=== PATIENT | female | born 1935 | race Caucasian/White ===

== ENCOUNTER 2018-08-11 15:12 | Inpatient (IN) ==
[2018-08-11] MEDS ORDERED: ASPIRIN PO ONE (15:32)
--- NOTE | 2018-08-11 16:11 | EKG Report ---
Test Performed on : 08/11/2018 4:06:44 PM Test Reason : sob Blood Pressure : / mmHG Vent. Rate : 092 BPM Atrial Rate : 082 BPM P-R Int : 000 ms QRS Dur : 068 ms QT Int : 354 ms P-R-T Axes : 000 072 063 degrees QTc Int : 437 ms Atrial fibrillation. Septal infarct , age undetermined Abnormal ECG When compared with ECG of 11-AUG-2018 16:05, (Unconfirmed) Septal infarct is now present ST now depressed in Inferior leads Unconfirmed Result
[2018-08-11] MEDS ORDERED: DUONEB (A & A) INH ONE (16:22)
[2018-08-11 16:24] LABS: BASO# 0.02 X1000 (0.0-0.2); BASO% 0.1 % (0.0-0.8); EOS# 0.07 X1000 (0.0-0.7); EOS% 0.5 % (0.0-10.0); HEMOGLOBIN 13.7 g/dL (12.0-16.0); IMM GRAN# 0.04 X1000 (0.0-0.04); IMM GRAN% 0.3 % (0.0-0.5); LYMPH# 2.19 X1000 (1.2-3.4); LYMPH% 16.2 % (20.5-51.1); MCH 28.6 PG (27-31); MCHC 31.1 g/dL (33-37); MCV 91.9 FL (81-99); MONO# 0.72 X1000 (0.11-0.59); MONO% 5.3 % (1.7-9.3); MPV 11.1 FL (7.4-10.4); NEUT# 10.51 X1000 (1.4-6.5); NEUT% 77.6 % (42.2-75.2); PLT 211 X1000 (130-400); RBC 4.79 XMIL (4.2-5.4); WBC 13.55 X1000 (4.8-10.8)
[2018-08-11] MEDS ORDERED: ROCEPHIN 1 GM in NS 50 ML IV ONE (16:25)
[2018-08-11 16:27] LABS: ALLEN TEST YES; BE 3.5 mmoll (-3.0-3.0); BLOOD TYPE ARTERIAL; HCO3-(ACT) 27.6 mmoll (20.0-26.0); METHB 1.3 % (0.0-1.5); O2(CT) 17.8 mL/dL (15.0-23.0); O2HB 96.4 % (95.0-99.0); PCO2(98.6) 44 mmHg (35-45); PO2(98.6) 108 mmHg (60-100); SAMPLE BLOOD; SAO2 98.9 % (95.0-100.0); pH(98.6) 7.42 (7.35-7.45)
[2018-08-11 16:28] LABS: MODALITY CANNULA
[2018-08-11 17:04] LABS: AGAP 12; BUN 17 mg/dL (8-22); CALCIUM 10.1 mg/dL (8.8-10.2); CHLORIDE 107 mmol/L (98-107); COSMO 293; CREATININE 0.8 mg/dL (0.5-0.9); ESTIMATED GFR > 60; GLUCOSE 143 mg/dL (70-104); POTASSIUM 3.8 mmol/L (3.5-5.1); SODIUM 145 mmol/L (136-145); TCO2 26 mmol/L (25-35)
[2018-08-11] MEDS ORDERED: ZOFRAN IV ONE (17:20)
--- NOTE | 2018-08-11 17:29 | Diag Imaging Result Doc PS360 ---
EXAM: CHEST-PORTABLE 08/11/2018 HISTORY: sob TECHNIQUE: AP portable at 1558 COMMENT: There is cardiomegaly. There is extensive increased interstitial markings as well as denser alveolar opacity in the right mid lung field. Compared to 03/30/2017 the interstitial opacities have worsened in the alveolar opacity in the right lateral lung was not present. IMPRESSION: Pulmonary edema and/or pneumonia superimposed on pulmonary fibrosis. Cardiomegaly. Electronically signed by Yg Nunn 08/11/2018 5:27 PM
[2018-08-11] MEDS ORDERED: DUONEB (A & A) INH PRN (18:48)
--- NOTE | 2018-08-11 19:07 | PROVIDER DOCUMENTATION ---
This chart was entered by Selin Phoenix Scribe, acting as scribe for Chay Perdomo MD. HPI-Respiratory General - General Stated Complaint: RESPIRATORY DISTRESS Time Seen by Provider: 08/11/18 15:30 Source: patient, EMS Allergies/Adverse Reactions: Patient Allergies Allergy/AdvReac Type Severity Reaction Status Date / Time Penicillins Allergy Intermediate HIVES Verified 08/11/18 18:27 acetaminophen Allergy NAUSEA Verified 08/11/18 18:27 [From Darvocet-N] cefaclor [From Ceclor] Allergy HIVES Verified 08/11/18 18:27 propoxyphene napsylate * Allergy NAUSEA Verified 08/11/18 18:27 [From Darvocet-N] simvastatin [From Zocor] Allergy Unknown Verified 08/11/18 18:27 Sulfa (Sulfonamide Allergy RASH Verified 08/11/18 18:27 Antibiotics) levofloxacin [From Levaquin] AdvReac Intermediate HIVES Verified 08/11/18 18:27 amoxicillin trihydrate * AdvReac HIVES Verified 08/11/18 18:27 [From Amoxil] Home Medications: Home Medication List Medication Instructions Recorded Confirmed Last Taken Type Budesonide/Formoterol Fumarate 10.2 gm IH DIRECTED 10/27/15 09/25/17 09/25/17 History [Symbicort 160-4.5 Mcg Inhaler] Diltiazem L.a. [Cardizem LA] 180 mg PO DAILY #30 tablet 11/02/15 09/25/17 09/25/17 Rx Carbidopa/Levodopa [Sinemet 25/100] 25 - 100 tab PO 4XDAY 03/26/17 09/25/17 09/25/17 History Escitalopram [Lexapro] 10 mg PO DAILY 03/26/17 09/25/17 09/25/17 History Latanoprost 0.005% Oph Soln 1 drop ORDERED ORDERED 03/26/17 09/25/17 09/25/17 History [Xalatan 0.005% Oph Soln] Pramipexole [Mirapex] 0.5 mg PO DAILY 03/26/17 09/25/17 09/25/17 History Prednisone 10 mg PO DAILY 03/26/17 09/25/17 09/25/17 History Albuterol Sulfate Inhaler 2 puff INH Q6H PRN PRN #1 inhaler 03/31/17 09/25/17 09/25/17 Rx [Ventolin Hfa] Apixaban [Eliquis] 5 mg PO BID #120 tab 03/31/17 09/25/17 09/25/17 Rx Doxycycline 100 mg PO BID #12 tab 03/31/17 09/25/17 09/25/17 Rx Furosemide [Lasix] 20 mg PO Q48H #30 tab 03/31/17 09/25/17 09/25/17 Rx Ipratropium/Albuterol INH 1 puff INH RTQ6H #1 inhaler 03/31/17 09/25/17 09/25/17 Rx [Combivent Respimat Inhaler] Polyethylene Glycol 3350 [Miralax] 17 gm PO DAILY powder, packet 03/31/17 09/25/17 09/25/17 Rx Montelukast Sodium [Singulair] 10 DAILY 09/25/17 Unknown History Pramipexole [Mirapex] 1 PO QHS 09/25/17 1 Day Ago History ~09/24/17 - History of Present Illness-Resp Nature of Presenting Problem: 82 yowf present to the ed via ems with sob this am and has been taking neb tx but with no relief. pt has cough Quality of Pain: reports: none Severity in ED: reports: moderate Onset/Duration: reports: this morning Timing: reports: still present Cough Quality/Degree: reports: mild Current Respiratory Medication Therapy: Initiated see nurses note Modifying Factors: improves with: sitting upright. worse with: exertion Associated Symptoms: reports: cough, shortness of breath. denies: chest pain/soreness, fever/chills Similar Symptoms Previously?: Yes (hx opf copd) Recently seen or treated by another doctor?: No Review of Systems - Adult - REVIEW OF SYSTEMS - ADULT Constitutional: denies: chills, fever Eyes: reports: no symptoms reported Ears, Nose, Mouth & Throat: reports: no symptoms reported Cardiovascular: denies: chest pain, palpitations, syncope Respiratory: reports: see HPI, cough, dyspnea on exertion, shortness of breath, wheezing Gastrointestinal: denies: abdominal pain, diarrhea, nausea, vomiting Genitourinary: reports: no symptoms reported Musculoskeletal: denies: back pain, neck pain Integumentary: reports: no symptoms reported Neurological: reports: no symptoms reported Past History - Adult - PAST MEDICAL HISTORY-ADULT Review of Records: reports: Nursing Assessment Review, Medications Reviewed Major Childhood Illnesses: reports: denies history Cardiovascular: reports: CHF, HTN Respiratory: reports: COPD Gastrointestinal: reports: denies history Obstetrical/Gynecological: reports: denies history Genitourinary: reports: denies history Musculoskeletal: reports: denies history Hand Dominance: Right Handed Neurological: reports: dementia, Parkinson's Psychiatric: reports: denies history Endocrine/Immune: reports: denies history Other Conditions: reports: denies history - PRIOR SURGERIES/PROCEDURES Surgical/Procedure History: reports: cholecystectomy, hysterectomy, hernia repair, bowel surgery - PRIOR HOSPITALIZATIONS Prior Hospitalizations: reports: none - IMMUNIZATION STATUS Childhood Immunizations: UTD Flu Vaccine: See Nurse Assessment - FAMILY HISTORY Family History: reviewed, not pertinent - SOCIAL HISTORY Smoking: quit less than 1 year Substance Use: denies Living Situation: family Physical Exam-General - CONSTITUTIONAL General Appearance: alert, moderate distress - EYES Eyes: PERRL/EOMI, pink conjunctivae - HEAD, EARS, NOSE, MOUTH & THROAT HENMT: normocephalic/atraumatic, moist mucous membranes - NECK Neck: non-tender, full range of motion, supple - RESPIRATORY Respiratory: respiratory distress, decreased breath sounds, wheezing, increased rate (26) - CARDIOVASCULAR Cardiovascular: normal peripheral pulses, regular rate, rhythm, no edema - GASTROINTESTINAL (ABDOMEN) Abdominal Exam: normal bowel sounds, non tender, soft - NEUROLOGIC Neurologic: grossly normal Progress - PLAN OF CARE/RESULTS Progress/Plan/Lab Results: Vital Signs - 8 hr 08/11/18 16:03 08/11/18 16:14 08/11/18 16:30 Temperature 98.1 F Pulse Rate 93 H 86 90 Respiratory Rate 22 21 20 Blood Pressure 139/69 139/69 O2 Sat by Pulse Oximetry 96 99 100 08/11/18 17:30 08/11/18 18:00 08/11/18 18:01 Temperature Pulse Rate 108 H 87 88 Respiratory Rate 17 21 20 Blood Pressure 143/71 O2 Sat by Pulse Oximetry 98 97 98 Laboratory Results - last 24 hr 08/11/18 08/11/18 08/11/18 16:06 16:06 16:06 WBC 13.55 H RBC 4.79 Hgb 13.7 Hct 44.0 MCV 91.9 MCH 28.6 MCHC 31.1 L RDW Std Deviation 15.0 H Plt Count 211 MPV 11.1 H Immature Gran % (Auto) 0.3 Neut % (Auto) 77.6 H Lymph % (Auto) 16.2 L Stone % (Auto) 5.3 Eos % (Auto) 0.5 Baso % (Auto) 0.1 Immature Gran # (Auto) 0.04 Neut # (Auto) 10.51 H Lymph # (Auto) 2.19 Stone # (Auto) 0.72 H Eos # (Auto) 0.07 Baso # (Auto) 0.02 D-Dimer, Quantitative 0.95 H Specimen Type Sample Site pH pCO2 pO2 HCO3 Base Excess Oxyhemoglobin ABG O2 Sat (Calculated) ABG O2 Saturation ABG Carboxyhemoglobin ABG Methemoglobin Brenden Test A-a O2 Difference Total Hemoglobin Lactate Liter Flow Blood Gas Modality FiO2 % Sodium 145 Potassium 3.8 Chloride 107 Carbon Dioxide 26 Anion Gap 12 BUN 17 Creatinine 0.8 Estimated GFR/1.73 m2 > 60 BUN/Creatinine Ratio 21 Glucose 143 H Calculated Osmolality 293 Calcium 10.1 Troponin T Dbl-N-Hqvnehahdqs Pept Plasma Lactate 08/11/18 08/11/18 08/11/18 16:06 16:06 16:15 WBC RBC Hgb Hct MCV MCH MCHC RDW Std Deviation Plt Count MPV Immature Gran % (Auto) Neut % (Auto) Lymph % (Auto) Stone % (Auto) Eos % (Auto) Baso % (Auto) Immature Gran # (Auto) Neut # (Auto) Lymph # (Auto) Stone # (Auto) Eos # (Auto) Baso # (Auto) D-Dimer, Quantitative Specimen Type ARTERIAL Sample Site R RADIAL pH 7.42 pCO2 44 pO2 108 H HCO3 27.6 H Base Excess 3.5 H Oxyhemoglobin 96.4 ABG O2 Sat (Calculated) 17.8 ABG O2 Saturation 98.9 ABG Carboxyhemoglobin 1.30 ABG Methemoglobin 1.3 Brenden Test YES A-a O2 Difference 37.0 Total Hemoglobin 13.0 Lactate 1.70 Liter Flow 2.0 Blood Gas Modality CANNULA FiO2 % 28.0 Sodium Potassium Chloride Carbon Dioxide Anion Gap BUN Creatinine Estimated GFR/1.73 m2 BUN/Creatinine Ratio Glucose Calculated Osmolality Calcium Troponin T < 0.010 Rcp-Y-Vegekdfintd Pept 1758 H Plasma Lactate 08/11/18 16:42 WBC RBC Hgb Hct MCV MCH MCHC RDW Std Deviation Plt Count MPV Immature Gran % (Auto) Neut % (Auto) Lymph % (Auto) Stone % (Auto) Eos % (Auto) Baso % (Auto) Immature Gran # (Auto) Neut # (Auto) Lymph # (Auto) Stone # (Auto) Eos # (Auto) Baso # (Auto) D-Dimer, Quantitative Specimen Type Sample Site pH pCO2 pO2 HCO3 Base Excess Oxyhemoglobin ABG O2 Sat (Calculated) ABG O2 Saturation ABG Carboxyhemoglobin ABG Methemoglobin Brenden Test A-a O2 Difference Total Hemoglobin Lactate Liter Flow Blood Gas Modality FiO2 % Sodium Potassium Chloride Carbon Dioxide Anion Gap BUN Creatinine Estimated GFR/1.73 m2 BUN/Creatinine Ratio Glucose Calculated Osmolality Calcium Troponin T Qig-P-Sjitlgwmfvf Pept Plasma Lactate 2.2 Orders Category Date Time Status Admit - [facility] Routine AdmDCTranf 08/11/18 18:50 Active Activity - Up with Assistance ORDERED Care 08/11/18 18:50 Active Apply Mechanical Device [QM] ORDERED Care 08/11/18 18:50 Active Intake and Output-Strict ORDERED Care 08/11/18 19:03 Active Resuscitation Status Routine Care 08/11/18 18:45 Ordered Update & Confirm Home Medicati ROUTINE Care 08/11/18 19:03 Active Vital Signs Order Q 4-HR ASSESS Care 08/11/18 18:50 Active Z-Document. for Tele Applied ORDERED Care 08/11/18 18:50 Active Heart Healthy Diet Diet 08/11/18 18:51 Active CHEST-PORTABLE [RAD] DAILY Exams 08/13/18 06:00 Ordered CHEST-PORTABLE [RAD] DAILY Exams 08/14/18 06:00 Ordered CHEST-PORTABLE [RAD] DAILY Exams 08/15/18 06:00 Ordered cxr [CHEST-PORTABLE] [RAD] Stat Exams 08/11/18 15:32 Completed ABG [RESP] Routine Lab 08/11/18 16:15 Completed BASIC METABOLIC PANEL [CHEM] DAILY Lab 08/12/18 06:00 Ordered BASIC METABOLIC PANEL [CHEM] DAILY Lab 08/13/18 06:00 Ordered BASIC METABOLIC PANEL [CHEM] Stat Lab 08/11/18 16:06 Completed BLOOD CULTURE [BLDCUL] Stat Lab 08/11/18 17:00 Results CBC WITH DIFF [HEME] DAILY Lab 08/12/18 06:00 Ordered CBC WITH DIFF [HEME] DAILY Lab 08/13/18 06:00 Ordered CBC WITH ELECTRONIC DIFF [HEME] Stat Lab 08/11/18 16:06 Completed CK PROFILE [SP CHEM] Q8H Lab 08/11/18 19:15 Ordered CK PROFILE [SP CHEM] Q8H Lab 08/12/18 03:15 Ordered D-DIMER [COAG] Stat Lab 08/11/18 16:06 Completed HEPATIC FUNCTION [CHEM] Timed Lab 08/11/18 19:01 Ordered LACTATE, PLASMA [CHEM] Stat Lab 08/11/18 16:42 Completed MAGNESIUM [CHEM] DAILY Lab 08/12/18 06:00 Ordered MAGNESIUM [CHEM] DAILY Lab 08/13/18 06:00 Ordered MAGNESIUM [CHEM] DAILY Lab 08/14/18 06:00 Ordered SPUTUM CULTURE WITH GRAM STAIN [RM] Stat Lab 08/11/18 19:05 Uncollected TROPONIN T Q8H Lab 08/11/18 19:15 Ordered TROPONIN T Q8H Lab 08/12/18 03:15 Ordered TROPONIN T Stat Lab 08/11/18 16:06 Completed TSH Timed Lab 08/11/18 19:03 Ordered URINALYSIS W/POSS RFLX CULT [URINALYSIS] Routine Lab 08/11/18 19:03 Uncollected bnp [PRO B-NATRIURETIC PEPTIDE] Stat Lab 08/11/18 16:06 Completed Albuterol 2.5MG/Ipratrop 0.5MG [Duoneb (A & A)] Med 08/11/18 18:48 Active 3 ml INH Q2H PRN PRN Albuterol 2.5MG/Ipratrop 0.5MG [Duoneb (A & A)] Med 08/11/18 19:30 Active 3 ml INH RTQ4H Albuterol 2.5MG/Ipratrop 0.5MG [Duoneb (A & A)] Med 08/11/18 16:22 Disco ntinued 9 ml INH NOW ONE Aspirin Med 08/11/18 15:32 Discontinued 325 mg PO NOW ONE Aspirin Med 08/12/18 09:00 Active 81 mg PO DAILY Azithromycin 500 mg/Ns [Zithromax 500 mg/Ns] Med 08/11/18 19:00 Active 500 mg in 250 ml IV Q24H CefTRIAXONE [Rocephin] 1 gm Med 08/11/18 16:25 Discontinued 0.9% Sodium Chloride Inj [Ns] 50 ml IV NOW CefTRIAXONE [Rocephin] 1 gm Med 08/12/18 17:00 Active 0.9% Sodium Chloride Inj [Ns] 50 ml IV Q24H Methylprednisolone Sod Succ [Solu-Medrol] Med 08/11/18 19:00 Active 60 mg IV Q8H Ondansetron [Zofran] Med 08/11/18 17:20 Discontinued 4 mg IV NOW ONE Aerosol Treatments Routine Oth 08/11/18 18:50 Active Telemetry [OM.EQ] Routine Oth 08/11/18 18:50 Active EKG [EKG] Stat Ther 08/11/18 15:31 Draft Transfer/Admit Order [TRANSFER] Routine Transfer 08/11/18 18:44 Ordered Result Diagrams: 08/11/18 16:06 08/11/18 16:06 - REASSESSMENT Reassessment #1 Time Reassessed: 15:50 Status: unchanged Reassessment #2 Time Reassessed: 16:40 Status: improving - EKG 1 Time of EKG reading by physician:: 16:06 EKG Read and Signed by:: Chay Perdomo EKG Interpretation (*Must complete 3 of following elements*): Abnormal Rate: 92 Rhythm: afib [place]: normal QRS: normal [place] Interval: normal ST Wave: normal Comments: septal infarct, age undetermined - CONSULTS/PCP/HOSPITALIST Notification #1 *Consult/PCP/Hospitalist*: [facility]ajero admitting for Dr. Ness Time Discussed: 18:02 Consult Disposition: Admit (Hx, PE and patient care discussed, aceepted.) Departure - Departure Date of Disposition Decision: 08/11/18 Time of Disposition Decision: 18:02 DIAGNOSIS: Respiratory distress Pneumonia Qualifiers: Pneumonia type: due to unspecified organism Laterality: unspecified laterality Lung location: unspecified part of lung Qualified Code(s): J18.9 - Pneumonia, unspecified organism Pulmonary edema Qualifiers: Chronicity: acute Qualified Code(s): J81.0 - Acute pulmonary edema Disposition: ADMITTED INPATIENT 09 Certified Medical Emergency: Emergent Condition: Stable Referrals and Follow-Ups: Eder Benz MD [Primary Care Provider] - - Critical Care Note This patient required my direct & personal management of CC.: No Attestation - Physician/ CARLOS Attestation Patient care was provided by Advanced Practice Provider:: No The physician spent face to face time with patient:: Yes Advanced Practice Provider documentation review:: Supervising physician onsite and consulted in the evaluation and care of this patient. The physician did have a face to face encounter with the patient. This chart was documented by the indicated scribe, (Selin Phoenix Scribe) and accurately reflects the services I performed and decisions made by me, Chay Perdomo MD, as attested by the provider's signature.
[2018-08-11] MEDS: DUONEB (A & A) INH SCH ×2 (19:23→23:22)
[2018-08-11] MEDS ORDERED: LASIX IV ONE (19:28)
[2018-08-11 19:37] LABS: URINE SOURCE CLEAN CATCH
[2018-08-11 19:40] LABS: BILIRUBIN URINE NEGATIVE (NEGATIVE); BLOOD URINE MODERATE (NEGATIVE); COLOR YELLOW; GLUCOSE URINE NEGATIVE (NEGATIVE); KETONE URINE TRACE mg/dL (NEGATIVE); LEUKOCYTES URINE NEGATIVE (NEGATIVE); NITRITE URINE NEGATIVE (NEGATIVE); PH URINE 5.5; PROTEIN URINE TRACE mg/dL (NEGATIVE); TURBIDITY URINE CLEAR (CLEAR); UROBILINOGEN URINE NORMAL (NORMAL)
[2018-08-11 19:45] LABS: UR EPITHELIAL CELLS >10 /HPF (<10); URINE BACTERIA NEGATIVE /HPF; URINE RBC <10 /HPF (<10); URINE WBC <10 /HPF (<10)
[2018-08-11 19:51] LABS: URINE YEAST PRESENT
[2018-08-11] MEDS: SOLU-MEDROL IV SCH (20:02)
[2018-08-11] MEDS: ZITHROMAX 500 MG/NS 500 MG/250 ML IVPB IV SCH (20:03)
[2018-08-11 20:55] LABS: ALB/GLOB RATIO 1.1; ALBUMIN 3.4 g/dL (3.5-5.0); DIRECT BILIRUBIN 0.1 mg/dL (0.00-0.20); TOTAL BILIRUBIN 0.45 mg/dL (0.20-1.00); TOTAL PROTEIN 6.4 g/dL (6.3-8.3)
--- NOTE | 2018-08-11 22:29 | HISTORY AND PHYSICAL ---
PRIMARY CARE PHYSICIAN: Dr. Eder Benz. CHIEF COMPLAINT: Shortness of breath and hypoxia. HISTORY OF PRESENT ILLNESS: Mrs. Cowart is an 82-year-old female with a history of chronic atrial fibrillation, Parkinson disease, COPD, oxygen dependent, diastolic heart failure, dementia, who presents with acute onset of dyspnea, chills, and subjective fevers that began today. Her daughter, who is at the bedside, states that she was checking her pulse ox today at home and it was varying from the mid 80s to low 90s, at the same time the patient herself was complaining of shortness of breath, coughing up occasional yellow sputum. They did call home health, who eventually called her PCP, who suggested she come to the ER for evaluation. The patient herself is a poor historian. She states that she was short of breath this morning, but feels a little better now. She denies any chest pain. No nausea, vomiting. Denies any abdominal pain, diarrhea, or dysuria. In the ER, she was noted to have a white count of 13.5. Her ABG on nasal cannula was actually fairly adequate, and her chemistry was virtually unremarkable, she did have a proBNP of 1758. Chest x-ray was done and shows pulmonary edema and/or pneumonia superimposed on pulmonary fibrosis with cardiomegaly. EKG does show atrial fibrillation with a rate of 82 beats per minute. Hemodynamically, she is stable, will admit her for community-acquired pneumonia. PAST MEDICAL HISTORY: 1. Chronic atrial fibrillation, not on anticoagulation, presumably secondary to history of falling with head trauma. 2. COPD, on home O2. 3. Parkinson disease. 4. Hypertension. 5. Apparent chronic leukocytosis. 6. Obstructive sleep apnea, not compliant with CPAP. PAST SURGICAL HISTORY: She has had a cholecystectomy, hysterectomy, hernia repair, and a bone fusion. SOCIAL HISTORY: She quit smoking in her 40s. No tobacco, alcohol, or drug use. She lives with her daughter and has home health. She is . ALLERGIES: Penicillin, acetaminophen, cefaclor, propoxyphene, Zocor, sulfa, Levaquin, amoxicillin. HOME MEDICATIONS: Have not been compiled, once they are compiled we will assign them appropriately. REVIEW OF SYSTEMS: A 10-point review of systems obtained, found to be negative with the exception of the HPI. FAMILY HISTORY: Noncontributory. PHYSICAL EXAM: VITAL SIGNS: Blood pressure is 143/71, heart rate 88, respiratory rate 20, O2 saturation 98% on nasal cannula, temperature is 98.1 degrees. GENERAL: Elderly and frail-appearing 82-year-old female, lying in a hospital bed, no acute distress. NEUROLOGIC: She is awake and alert. She is somewhat disoriented, stating that she is at [facility]. Otherwise, follows commands without focal deficits. HEENT: Head atraumatic, normocephalic. Pupils are equal, round, reactive to light. Oral mucosa is slightly dry. Trachea is midline. There is no JVD. CHEST: Diminished with very fine Velcro-like crackles in the bases. CARDIOVASCULAR: Irregular rate and rhythm, S1, S2 is noted. GASTROINTESTINAL: Soft, nondistended, nontender. Bowel sounds positive. EXTREMITIES: No edema. Pulses 1+ bilaterally. DIAGNOSTIC DATA: Chest x-ray shows pulmonary edema and/or pneumonia superimposed on pulmonary fibrosis with cardiomegaly. EKG, atrial fibrillation, rate controlled at 82 beats per minute. WBC 13.55, hemoglobin 13.7, hematocrit 44, platelet count 211,000. D-dimer 0.95. ABG on nasal cannula, pH 7.42, CO2 is 44, pO2 is 108, bicarb 27.6. Lactate 1.7. Sodium 145, potassium 3.8, chloride 107, CO2 of 26, anion gap 12, BUN 17, creatinine 0.8. Glucose 143, calcium 10.1. Troponin negative. ProBNP 1758. Plasma lactate is 2.2. ASSESSMENT AND PLAN: 1. Acute hypoxemic respiratory failure: Presumably secondary to pulmonary fibrosis, chronic obstructive pulmonary disease, and pneumonia with possible diastolic heart failure. We will add azithromycin to the Rocephin that has been started. Continue breathing treatments. Add low-dose IV steroids and aggressive pulmonary toilet. We will check a chest x-ray in the morning. The blood cultures have been obtained. We will order sputum cultures as well. 2. Community-acquired pneumonia, as above. 3. Diastolic heart failure: Patient does not appear overtly volume overloaded, in fact, she is probably a bit on the dry side. Will hold off on any diuresis as, again, she is not volume overloaded. Continue breathing treatments. Trend cardiac enzymes. Follow intakes and outputs, daily weights, will follow telemetry as well. 4. Parkinson disease. Will continue home medications once reconciled. 5. Chronic atrial fibrillation: Rate controlled. We will check a TSH. Continue home rate control medication and hold off on anticoagulation, as that has been stopped in the past due to dementia and fall risk. Further recommendations to follow. cc: Pedro Mccann MD
[2018-08-11] MEDS: SINEMET 25/100 PO SCH (23:28)
[2018-08-11] MEDS: MIRAPEX PO SCH (23:28)
[2018-08-12] MEDS: DUONEB (A & A) INH SCH ×6 (03:14→23:25)
[2018-08-12] MEDS: SOLU-MEDROL IV SCH ×2 (04:25→16:47)
[2018-08-12] MEDS: CARDIZEM LA PO SCH (04:26)
[2018-08-12] MEDS ORDERED: LANOXIN IV ONE (05:03)
[2018-08-12] MEDS ORDERED: LANOXIN ONE (05:21)
[2018-08-12 06:00] LABS: HEMATOCRIT 43.5 % (37.0-47.0); HEMOGLOBIN 13.3 g/dL (12.0-16.0); IMM GRAN# 0.03 X1000 (0.0-0.04); IMM GRAN% 0.2 % (0.0-0.5); LYMPH# 0.51 X1000 (1.2-3.4); LYMPH% 4.2 % (20.5-51.1); MCH 28.4 PG (27-31); MCHC 30.6 g/dL (33-37); MCV 92.9 FL (81-99); MONO# 0.09 X1000 (0.11-0.59); MONO% 0.7 % (1.7-9.3); MPV 11.4 FL (7.4-10.4); NEUT# 11.44 X1000 (1.4-6.5); NEUT% 94.9 % (42.2-75.2); PLT 198 X1000 (130-400); RBC 4.68 XMIL (4.2-5.4); RDW 15.1 % (11.5-14.5); WBC 12.07 X1000 (4.8-10.8)
[2018-08-12 06:25] LABS: CALCIUM 9.8 mg/dL (8.8-10.2); CREATININE 1.1 mg/dL (0.5-0.9); MAGNESIUM 1.9 mg/dL (1.5-2.7); POTASSIUM 3.7 mmol/L (3.5-5.1)
[2018-08-12 06:52] LABS: SEGS 100 % (42-75)
--- NOTE | 2018-08-12 08:18 | EKG Report ---
Test Performed on : 08/12/2018 05:07:04 AM Test Reason : tachy Blood Pressure : / mmHG Vent. Rate : 139 BPM Atrial Rate : 122 BPM P-R Int : 000 ms QRS Dur : 072 ms QT Int : 318 ms P-R-T Axes : 000 046 -64 degrees QTc Int : 483 ms Atrial fibrillation. with rapid ventricular response. ST & T wave abnormality, consider inferior ischemia Abnormal ECG When compared with ECG of 11-AUG-2018 16:06, (Unconfirmed) Vent. rate has increased BY 47 BPM Criteria for Septal infarct are no longer present T wave inversion now evident in Inferior leads Nonspecific T wave abnormality now evident in Anterior leads Confirmed by Ronny ALVES, Akhil Kerns ([id number]) on 08/12/2018 10:22:49 AM
[2018-08-12] MEDS ORDERED: LOPRESSOR IV ONE (08:56)
[2018-08-12] MEDS ORDERED: SINEMET 25/100 PO SCH (09:00)
[2018-08-12] MEDS ORDERED: CARDIZEM LA PO SCH (09:00)
[2018-08-12] MEDS: SINEMET 25/100 PO SCH ×4 (09:06→20:24)
[2018-08-12] MEDS: LEXAPRO PO SCH (09:06)
[2018-08-12] MEDS: ASPIRIN PO SCH (09:06)
--- NOTE | 2018-08-12 10:21 | PROGRESS NOTE ---
DATE: 08/12/2018 SUBJECTIVE: This patient is resting comfortably in bed. She feels better, I had a conversation with the daughter which is at the bedside. It looks like every time this patient eats, she probably has a little aspiration to the lungs, sometimes she is choking and she feels short of breath after eating as well. I have requested an evaluation by Speech Therapy. As per the daughter, also this patient had an esophageal dilation a long time ago. OBJECTIVE: Vital Signs: Temperature 97.8 degrees, pulse 120 but now at the bedside is 95, blood pressure 114/48, oxygen saturation 97% on 2 L of nasal cannula. HEENT: Head normocephalic. No trauma. PERRLA. Neck: Supple. No JVD. No masses. Central trachea. Chest: Decreased breath sounds globally with expiratory wheezing but scattered, some crackles bilaterally as well. Some crepitus which are generalized. Abdomen: Soft, nontender, nondistended. No hepatosplenomegaly. Neurological: The patient is alert, she is oriented. No focal deficits. Extremities: No edema, no clubbing, no cyanosis. LABORATORY DATA: WBC 12, hemoglobin 13.3, hematocrit 43.5, platelets 198,000. Sodium 146, potassium 3.7, chloride 104, bicarbonate 22, BUN 18, creatinine 1.1, glucose 172, calcium 9.8. Troponins negative x4. ASSESSMENT AND PLAN: 1. Acute hypoxemic respiratory failure, likely secondary to chronic obstructive pulmonary disease exacerbation, pneumonia and pulmonary fibrosis. She is on home O2 at this moment. We will continue with the same management. She is on antibiotics, breathing treatment and oxygen. 2. Community-acquired pneumonia, as above. 3. Chronic obstructive pulmonary disease with mild exacerbation as above. We will decrease the dose of the steroids from 60 q.8 hours to 40 q.12 hours, and we will monitor. She feels better. 4. Atrial fibrillation with episodes of rapid ventricular response, at this moment is controlled. She received digoxin IV during the night and recently she received a low dose of metoprolol 2.5 IV and the heart rate seems to be much better, is mostly in the 80s and 90s on the monitor. 5. Possible aspiration pneumonia. I have requested an evaluation by Speech Therapy, pending recommendations. 6. Pneumonia, as above. 7. Diastolic heart failure. She received just a little dose of Lasix yesterday because she has been having crackles. She feels better today. Her kidney function increased a little bit but seems to be at baseline. 8. Likely chronic kidney disease. We will monitor. 9. Parkinson disease. Continue with home medications. 10. Chronic atrial fibrillation. At this moment, the rate is controlled. The TSH is normal. We have been using metoprolol as needed and she will continue with diltiazem p.o. She is not on any anticoagulation due to possible dementia and fall risk. 11. Dementia, aware. cc: Pedro Mccann MD
[2018-08-12] MEDS: MIRALAX PO SCH (13:39)
[2018-08-12] MEDS: ROCEPHIN 1 GM in NS 50 ML IV SCH (16:47)
[2018-08-12] MEDS: ZITHROMAX 500 MG/NS 500 MG/250 ML IVPB IV SCH (18:53)
[2018-08-12] MEDS: LOPRESSOR IV PRN (20:24)
[2018-08-12] MEDS: MIRAPEX PO SCH (20:24)
[2018-08-12] MEDS ORDERED: MIRAPEX PO SCH (21:00)
[2018-08-13] MEDS: TYLENOL PO PRN ×3 (02:34→14:48)
[2018-08-13] MEDS: DUONEB (A & A) INH SCH ×6 (03:25→23:10)
[2018-08-13] MEDS: CARDIZEM LA PO SCH (04:20)
[2018-08-13] MEDS: SOLU-MEDROL IV SCH (04:20)
--- NOTE | 2018-08-13 07:37 | Diag Imaging Result Doc PS360 ---
EXAM: CHEST-PORTABLE INDICATION: Dyspnea TECHNIQUE: One view COMPARISON: 08/11/2018 FINDINGS: Increased interstitial markings bilaterally are essentially stable. However, there has been improvement of the airspace opacity in the right midlung zone. No new consolidation is identified. Cardiac silhouette is stable. IMPRESSION: Interval improvement on the right. Electronically signed by Geoffrey Casper 08/13/2018 7:35 AM
[2018-08-13 08:07] LABS: CALCIUM 9.2 mg/dL (8.8-10.2); MAGNESIUM 2.1 mg/dL (1.5-2.7); POTASSIUM 4.1 mmol/L (3.5-5.1)
[2018-08-13 08:10] LABS: BASO# 0.01 X1000 (0.0-0.2); HEMATOCRIT 40.4 % (37.0-47.0); HEMOGLOBIN 12.3 g/dL (12.0-16.0); IMM GRAN# 0.07 X1000 (0.0-0.04); IMM GRAN% 0.3 % (0.0-0.5); LYMPH# 0.48 X1000 (1.2-3.4); LYMPH% 2.2 % (20.5-51.1); MCH 28.3 PG (27-31); MCHC 30.4 g/dL (33-37); MCV 93.1 FL (81-99); MONO# 0.58 X1000 (0.11-0.59); MONO% 2.6 % (1.7-9.3); MPV 11.7 FL (7.4-10.4); NEUT# 21.04 X1000 (1.4-6.5); NEUT% 94.9 % (42.2-75.2); PLT 198 X1000 (130-400); RBC 4.34 XMIL (4.2-5.4); RDW 15.2 % (11.5-14.5); WBC 22.18 X1000 (4.8-10.8)
[2018-08-13] MEDS: MIRALAX PO SCH (08:45)
[2018-08-13] MEDS: SINEMET 25/100 PO SCH ×4 (08:45→21:28)
[2018-08-13] MEDS: ASPIRIN PO SCH (08:45)
[2018-08-13] MEDS: LEXAPRO PO SCH (08:45)
[2018-08-13 09:25] LABS: ANISOCYTOSIS 1+; BANDS 1 % (0-1); LYMPHS 3 % (21-51); MICROCYTOSIS 1+; MONO 3 % (1-9); SEGS 93 % (42-75)
--- NOTE | 2018-08-13 11:32 | Diag Imaging Result Doc PS360 ---
EXAM: BA SWALLOW W/VIDEO SPEECH THER HISTORY: Dysphagia TECHNIQUE: Modified barium swallow with speech therapist COMPARISON: None. FINDINGS: 113 images obtained. Fluoroscopy time is 29 seconds. Total dose is 40 mg. Normal passage of barium through the esophagus. Mildly prominent cricopharyngeus muscle. No aspiration occurred during the exam. The mid and distal esophagus are dilated. No stricture. IMPRESSION: Distended esophagus, but no obstruction to flow. Electronically signed by Sanjay Casey 08/13/2018 11:30 AM
--- NOTE | 2018-08-13 13:36 | PROGRESS NOTE ---
DATE: 08/13/2018 SUBJECTIVE: This patient is resting in bed. She has been choking with food frequently, but we just did a modified barium swallow that showed distended esophagus, but no obstruction of flow, and no aspiration during the exam. She does have pulmonary venous congestion and pneumonia, Infectious Disease Department and Pulmonary Department consulted. For now, we will continue with same management. OBJECTIVE: Vital Signs: Temperature 98 degrees, respiratory rate 16, and blood pressure 110/58. Oxygen saturation 94% on 2 L of nasal cannula. HEENT: Head normocephalic. No trauma. PERRLA. Neck: Supple. No JVD. No masses. Central trachea. Chest: Decreased breath sounds globally with scattered wheezing bilaterally. Some crackles bilaterally as well as crepitus which are generalized. Abdomen: Soft, nontender, and nondistended. No hepatosplenomegaly. Neurological: The patient is alert. She is oriented. No focal neurological deficits. LABORATORY: WBC 22.1, hemoglobin 12.3, hematocrit 40.4, and platelets 198,000. Sodium 144, potassium 4.1, chloride 104, bicarbonate 28, BUN 27, creatinine 1, glucose 139, calcium 9.2, and magnesium 2.1. ASSESSMENT AND PLAN: 1. Acute hypoxemic respiratory failure likely secondary to COPD exacerbation, pneumonia and pulmonary fibrosis. She is on home O2 at this moment. We will continue with same management. She is on antibiotics and breathing treatment. 2. Community-acquired pneumonia as above. 3. Chronic obstructive pulmonary disease exacerbation. I will decrease the steroids from 40 twice a day to 40 daily, and we will monitor. I do believe the leukocyte count increased due to the steroids. 4. Atrial fibrillation with episodes of RVR, controlled. 5. Possible aspiration pneumonia, modified barium swallow did not show any aspiration. She does have some dilated esophagus I think in a couple of areas, but no signs of obstruction. 6. Diastolic heart failure. She received just a little bit of Lasix 2 days ago because she was having a lot of crackles. She feels better. Kidney function at baseline. 7. Likely CKD. We will monitor. 8. Parkinson's disease. Continue home medication. 9. Chronic atrial fibrillation, rate controlled. TSH is normal. Continue metoprolol as needed and diltiazem p.o. 10. Dementia. Aware. 11. Even though she was coughing and basically choking with fluid during my physical exam, she had a modified barium swallow that did not show any obstruction and/or aspiration. We will continue to monitor. We will get GERD precautions and aspiration precautions. I have placed this patient on pantoprazole p.o. twice a day as well. cc: Pedro Mccann MD
--- NOTE | 2018-08-13 14:44 | CONSULTATION ---
DATE OF CONSULTATION: 08/13/2018 CONCLUSION: The patient is admitted to the hospital with pneumonia. Her latest chest x-ray shows that her right mid lung opacity is getting better. Both the patient and her daughter, who takes care of the patient, feel that she is getting better. The patient does have leukocytosis but I think this is due to the steroids that she has been put on, namely Solu-Medrol 40 mg IV every 12 hours. RECOMMENDATIONS: I suggest that we should continue with azithromycin and Rocephin. When the patient gets better and can go home I would suggest that we continue azithromycin p.o. and instead of Rocephin I would suggest treating the patient with Ceftin 500 mg p.o. every 12 hours. DISCUSSION: The patient is unable provide a history and the history I obtained was from the patient's daughter, who lives with her. She tells me that her mom approximately 4 to 5 days ago became dyspneic. She also noticed that her heart rate was increased. She was not having any nausea or vomiting and she did not have any diarrhea. She did not complain of any problem passing urine either. Laboratory studies show a CBC with a white count of 22,180, hemoglobin 12.3, and platelet count 198,000. Creatinine is 1. GFR is 53. Blood gases show a pH of 7.42, a PO2 of 108, and a pCO2 of 44. Liver function studies are normal. Urinalysis showed no bacteria or white blood cells. Blood cultures are negative. Chest x-ray shows improvement in the patient's right mid lung opacity. REVIEW OF SYSTEMS: I was unable to do this by asking the patient. The information I did get was from the patient's daughter. The daughter says that the patient has decreased hearing and vision, that she cannot walk on her own and she needs assistance to get from 1 place to another and specifically the daughter almost has to carry her that way. She for the most part is either chair ridden or bed ridden. She has not been having any nausea, vomiting, or diarrhea. She has not been having any skin rashes. The patient has not been complaining of any pain in her joints or muscle aching according to the daughter. [employer] HISTORY: Patient is a 8, para 6, AB 2. She has had a hysterectomy. PREVIOUS HOSPITALIZATIONS AND OPERATIONS: She has had labor and deliveries, two miscarriages, a hysterectomy, a hernia repair. The patient had part of her colon removed, the exact reason why is not known. She has had 2 surgeries on her cervical spine. MEDICAL DISEASES: Positive for hypertension, atrial fibrillation, Parkinson's disease, and COPD. 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 FAMILY HISTORY: Positive for hypertension, myocardial infarction, stroke, and cancer. SOCIAL HISTORY: The [place] . [place] The patient does not smoke cigarettes, drink alcoholic beverages, or abuse drugs. ALLERGIES: The patient is said to be allergic to penicillin. This occurred approximately 50 years ago. The daughter told me and I think she is absolutely correct in it, that the patient really is not allergic to most of the medications, she just has some adverse reactions to them such as diarrhea or nausea. The patient for instance now is on Rocephin and tolerating it very well even though cefaclor is listed as an allergy. The patient in the past has had Keflex and tolerated it well. MEDICATIONS: Medicines taken at home include the following. Ventolin inhaler, Sinemet, diltiazem, Lexapro, nitrofurantoin, Mirapex, and prednisone. PHYSICAL EXAMINATION: Vital Signs: Temperature is 97.9 degrees, pulse 105, respirations 16, blood pressure 126/57. General: This is an ill-appearing, elderly female. She is in no acute distress. Head, eyes, ears, nose, throat: She has decreased hearing and according to her daughter she has decreased vision. She does not have any white patches on her tongue. There is no drainage from the nose or ears. Neck: There is no meningismus. Lungs: Clear to auscultation. Cardiovascular: Heart rate is irregular. Abdomen: Soft and nontender. Extremities: No erythema or edema. Neurologic: The patient is awake. She has decreased hearing. She can move her extremities. There is no tremor. Integument: No rash is noted. Thank you for the consult. cc: Kennedy Putnam MD
[2018-08-13] MEDS: ROCEPHIN 1 GM in NS 50 ML IV SCH (17:44)
[2018-08-13] MEDS: ZITHROMAX 500 MG/NS 500 MG/250 ML IVPB IV SCH (18:46)
[2018-08-13] MEDS: MIRAPEX PO SCH (21:28)
[2018-08-13] MEDS: PROTONIX PO SCH (21:29)
--- NOTE | 2018-08-13 23:33 | CONSULTATION ---
DATE OF CONSULTATION: 08/13/2018 REQUESTING PROVIDER: Dr. Pedro Ness. REASON FOR CONSULTATION: Respiratory failure, pneumonia, COPD. HISTORY OF PRESENT ILLNESS: This is an 82-year-old female with a medical history of chronic hypoxic respiratory failure secondary to COPD, pulmonary fibrosis, obstructive sleep apnea, atrial fibrillation, Parkinson disease, histoplasmosis, hypertension, diabetes mellitus type 2, vascular dementia, and chronic leukocytosis. She had been seen in our office from May 2013 to September 2015 with severe COPD. Her last PFT in our records was done on 10/18/2015 with FEV1 at 48% of predicted. She presented to the ER on 08/11/2018 via EMS with acutely worsening shortness of breath, desaturation on home oxygen at 2 L, and tachycardia. Initial workup in the ER revealed acute on chronic hypoxic respiratory failure secondary to mild COPD exacerbation, pneumonia, and pulmonary fibrosis. She has been admitted to the medical floor for further evaluation and management. The patient is currently sitting in bed comfortably with no acute distress noted. She is on nasal cannula at 2 L, which is close to her baseline oxygen requirement. She apparently has decreased hearing and vision. She does complain of back pain at the end of my assessment and she remembers that she already took Tylenol for it, but the nurse told me that she took Tylenol for headache, not back pain. The patient's daughter who currently lives with her and takes care of her, reports that the patient has chronic intermittent productive cough with very sticky, clear phlegm most of time. She has intermittent worsened shortness of breath with hypoxia and tachycardia which looks like a panic attack for about a week. She has no fever, chills, nausea, vomiting, diarrhea, or chest pain. PAST MEDICAL AND SURGICAL HISTORY: 1. Chronic hypoxic respiratory failure secondary to COPD and pulmonary fibrosis, on home oxygen. 2. COPD, severe, based on the PFT done in September 2015, currently monitored by patient's family doctor per patient's daughter. 3. Pulmonary fibrosis. 4. Obstructive sleep apnea, not complying with CPAP therapy, not agreeing to outpatient sleep study test. 5. Atrial fibrillation. 6. Parkinson disease. 7. Remote history of histoplasmosis. 8. Hypertension. 9. Diabetes mellitus type 2. 10. Vascular dementia. 11. 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 The patient and patient's family do not remember why the patient takes steroid. 12. Cholecystectomy. 13. Hysterectomy. 14. Hernia repair. 15. Partial colon resection. 16. Bone fusion. SOCIAL HISTORY: The patient lives with her daughter and has home health care. She is . She is a former smoker and quit smoking in her 40s. She has no history of alcohol or illicit drug use. FAMILY HISTORY: Positive for heart attack, stroke, and cancer. ALLERGIES: Penicillins, Ceclor, sulfa, Levaquin, amoxicillin, Darvocet, Zocor. REVIEW OF SYSTEMS: Difficult to be obtained. PHYSICAL EXAMINATION: Vital Signs: Temperature 97.9, blood pressure 126/57, pulse 105, respiratory rate 16, oxygen saturation 100% on nasal cannula at 2. General: Elderly, chronically ill appearing, lying in bed in no acute distress. HEENT: Atraumatic. Trachea midline. Mucosa pink and slightly dry. No JVD. Respiratory: Even and unlabored. Symmetrical excursion. Auscultation reveals diminished breathing sounds with early inspiratory crackles bibasilarly and severely coarse breathing sounds in the upper lung zones bilaterally. Cardiovascular: Irregular rate and rhythm, with S1 and S2 noted. Gastrointestinal: Bowel sounds normoactive in all 4 quadrants. Soft, nontender, nondistended. Extremities: Resting tremor in the right arm noted. No pedal edema. No clubbing. No cyanosis. Neurologic: Alert and oriented x2. Speech fluent. Follow simple commands. Decreased hearing and vision reported and noted. LABORATORY DATA: White blood cell 22.18, hemoglobin 12.3, hematocrit 40.4, platelets 198,000. Sodium 144, potassium 4.1, chloride 104, carbon dioxide 28, BUN 27, creatinine 1.0, and glucose 139. IMAGING DATA: Chest x-ray reveals stable increased bilateral interstitial markings with interval improvement in the right middle lung zone. ASSESSMENT: This is an 82-year-old female with a medical history of chronic hypoxic respiratory failure secondary to chronic obstructive pulmonary disease and pulmonary fibrosis, obstructive sleep apnea, atrial fibrillation, Parkinson disease, remote history of histoplasmosis, hypertension, diabetes mellitus type 2, vascular dementia, and chronic leukocytosis. She has been admitted to the medical floor with acute on chronic hypoxic respiratory failure secondary to mild chronic obstructive pulmonary disease exacerbation, pneumonia, and pulmonary fibrosis. 1. Acute on chronic hypoxic respiratory failure, improved. Currently on nasal cannula at 2 L. 2. Severe chronic obstructive pulmonary disease mild exacerbation, improved. Currently, no wheezing noted. 3. Pneumonia. Dr. Putnam is on board. 4. Pulmonary fibrosis. 5. Obstructive sleep apnea. PLAN: 1. Continue supplemental oxygen. 2. Continue antibiotic per Dr. Putnam. Continue steroids and bronchodilators. 3. Follow up with chest x-ray, CBC, BMP, sputum culture, and blood culture. 4. Recommend discharging patient on long-acting anticholinergic such as Spiriva, along with long- acting beta agonist/inhaled corticosteroid combination such as Advair, Symbicort, Dulera. 5. Recommend to follow up outpatient with [facility]. 6. Continue GI and DVT prophylaxis. 7. Further recommendation pending hospital course. Thank you for the courtesy of this consult. Dictated by ROB Sidhu for Viji Smith MD cc: ROB Sidhu MD [facility]
[2018-08-14] MEDS: DUONEB (A & A) INH SCH ×6 (03:15→22:47)
[2018-08-14] MEDS: CARDIZEM LA PO SCH (04:53)
--- NOTE | 2018-08-14 07:15 | Diag Imaging Result Doc PS360 ---
EXAM: CHEST-PORTABLE 08/14/2018 HISTORY: Dyspnea TECHNIQUE: AP portable at 0603 COMMENT: There are patchy ill-defined opacities particularly in the right perihilar region which appears slightly worse than on 08/13/2018. This is similar in appearance, however, to the previous study of 08/11/2018. IMPRESSION: Pulmonary edema and/or pneumonia. Electronically signed by Yg Nunn 08/14/2018 7:13 AM
[2018-08-14 08:19] LABS: BASO# 0.01 X1000 (0.0-0.2); HEMATOCRIT 43.1 % (37.0-47.0); HEMOGLOBIN 13.4 g/dL (12.0-16.0); IMM GRAN# 0.06 X1000 (0.0-0.04); IMM GRAN% 0.3 % (0.0-0.5); LYMPH# 1.09 X1000 (1.2-3.4); LYMPH% 5.2 % (20.5-51.1); MCH 28.8 PG (27-31); MCHC 31.1 g/dL (33-37); MCV 92.5 FL (81-99); MONO# 1.56 X1000 (0.11-0.59); MONO% 7.5 % (1.7-9.3); MPV 11.1 FL (7.4-10.4); NEUT# 18.08 X1000 (1.4-6.5); PLT 201 X1000 (130-400); RBC 4.66 XMIL (4.2-5.4); RDW 15.2 % (11.5-14.5)
[2018-08-14] MEDS: LEXAPRO PO SCH (08:35)
[2018-08-14] MEDS: MIRALAX PO SCH (08:35)
[2018-08-14] MEDS: SINEMET 25/100 PO SCH ×4 (08:35→22:47)
[2018-08-14] MEDS: ASPIRIN PO SCH (08:35)
[2018-08-14] MEDS: PROTONIX PO SCH ×2 (08:35→22:47)
[2018-08-14 08:37] LABS: CALCIUM 9.5 mg/dL (8.8-10.2); CREATININE 0.9 mg/dL (0.5-0.9); POTASSIUM 4.5 mmol/L (3.5-5.1)
[2018-08-14] MEDS ORDERED: SOLU-MEDROL IV SCH (09:00)
[2018-08-14 09:14] LABS: LYMPHS 5 % (21-51); MONO 6 % (1-9); SEGS 89 % (42-75)
[2018-08-14 09:15] LABS: POIKILOCYTOSIS 1+; TARGET CELLS 1+
--- NOTE | 2018-08-14 16:42 | PROGRESS NOTE ---
DATE: 08/14/2018 SUBJECTIVE: This patient is sitting at the bedside during my physical exam. The modified swallow barium swallow showed a distended esophagus but no obstruction of flow, and no aspiration during the exam, even though she was choking yesterday when I saw her. She does have pulmonary venous congestion, pneumonia and fibrosis. Infectious Disease Department and Pulmonary Department on board. She is still short of breath. She seems to be frail. Likely we need to keep this patient during the weekend and discharge her at the beginning of the next week. OBJECTIVE: Vital Signs: Temperature 98.4 degrees, pulse 92, respiratory rate 18, blood pressure 114/55, oxygen saturation 100% on 2 L of nasal cannula. HEENT: Head normocephalic. No trauma. PERRLA. Neck: Supple. No JVD. No masses. Central trachea. Chest: Decreased breath sounds globally with no wheezing today, but crackles bilaterally and crepitus, which are generalized. Abdomen: Soft, nontender, nondistended. No hepatosplenomegaly. Neurological: Alert and oriented x3. She does have generalized weakness. LABORATORY DATA: WBC 20, hemoglobin 13.4, hematocrit 43.1, platelets 201,000. Sodium 142, potassium 4.5, chloride 106, bicarbonate 29, BUN 27, creatinine 0.9, glucose 105, calcium 9.5, magnesium 2.3. ASSESSMENT AND PLAN: 1. Acute hypoxemic respiratory failure, likely secondary to chronic obstructive pulmonary disease exacerbation, pneumonia and pulmonary fibrosis, she is on home O2. We will continue with same management. Pulmonary Department evaluated this patient. Continue with antibiotics and breathing treatment. 2. Acute community-acquired pneumonia. As above. 3. Chronic obstructive pulmonary disease exacerbation. I will stop the IV steroids, and I will start giving her p.o. steroids since she is not wheezing today. 4. Atrial fibrillation with rapid ventricular response, controlled. 5. Diastolic heart failure. She received a little bit of Lasix 3 days ago, but she was having a lot of crackles. She is still having some crackles. She feels better and her kidney function is at baseline. 6. Likely chronic kidney disease. Will monitor. 7. Parkinson's disease. Continue home medication. 8. Chronic atrial fibrillation, rate controlled. TSH normal. Continue metoprolol as needed. 9. Dementia, aware. 10. Leukocytosis, likely a combination of steroids and pneumonia. Will continue with the same management. I will decrease the dose of the steroids and actually I will switch it from IV to p.o. cc: Pedro Mccann MD
[2018-08-14] MEDS: ROCEPHIN 1 GM in NS 50 ML IV SCH (17:13)
[2018-08-14] MEDS: ZITHROMAX 500 MG/NS 500 MG/250 ML IVPB IV SCH (18:02)
[2018-08-14] MEDS: TYLENOL PO PRN (18:56)
[2018-08-14] MEDS: MIRAPEX PO SCH (22:47)
--- NOTE | 2018-08-14 23:00 | INFECTIOUS DISEASE PROGRESS NO ---
DATE: 08/14/2018 PRESENT ILLNESS: The patient has a right perihilar pneumonia. MEDICATIONS: The patient is receiving a combination of Rocephin and azithromycin. This is the third day of treatment with those agents. PHYSICAL EXAMINATION: Vital Signs: Temperature is 98.5 degrees, pulse 98, respirations 20, blood pressure 138/74. General: This is a chronically ill-appearing elderly female. She does look a little bit better than she did yesterday. Head/eyes/ears/nose/throat: She has decreased hearing. She does not have any white patches on her tongue. There is no drainage from the nose or ears. Neck: She does not have any pain when she turns her neck. Lungs: There were bilateral rales. Cardiovascular: Heart rate is irregular. Abdomen: Soft and nontender. Extremities: The patient does not have any edema or erythema. Neurologic: The patient is awake. She has decreased hearing. She can move her extremities. There is no tremor. Integument: No rash. LAB AND X-RAY: Chest x-ray shows right perihilar opacities. Blood cultures are negative thus far. CBC shows a white count of 20,800, hemoglobin 13.4, and platelet count 201,000. Creatinine is 0.9 GFR is 60. ASSESSMENT AND PLAN: Patient has pneumonia and is being treated for it with antibiotics. She does have leukocytosis, but this could be due to her steroids she is on. My plan now would be to continue treating her with Rocephin and azithromycin. COMORBIDITIES: Include she is elderly, and she has COPD as well as Parkinson disease. cc: Kennedy Putnam MD
--- NOTE | 2018-08-15 02:46 | PULMONOLOGY PROGRESS NOTE ---
DATE: 08/14/2018 SUBJECTIVE: Patient feels a little better. She reports her sputum production has decreased. Her shortness of breath has diminished. OBJECTIVE/PHYSICAL EXAM: Vital signs: The patient has been afebrile for the last 24 hours. Blood pressure 138/74, heart rate 98, respiratory rate 20, oxygen saturation 100%. HEENT: Pupils are equal and reactive. Oropharynx is clear. Neck: Supple. Chest: Reveals prolonged expiratory phase. Cardiac: S1, S2. Abdomen: Soft without hepatosplenomegaly. Extremities: Without edema. LABORATORIES: No new microbiology data. White blood count 20.8, hemoglobin 13.4, platelet count 201,000. Sodium 142, potassium 4.5, chloride 106, bicarbonate 27, creatinine 0.9. IMPRESSION: An 82-year-old with 1. Chronic obstructive pulmonary disease. 2. Exacerbation of known bronchiectasis. 3. Acute hypoxemic respiratory failure. 4. Dementia. 5. Leukocytosis. RECOMMENDATIONS: 1. Continue oxygen for hypoxemic respiratory failure. 2. Continue bronchodilators for bronchial hygiene. 3. Consider sputum culture if this can be obtained. cc: Demar Vaughn MD
[2018-08-15] MEDS: DUONEB (A & A) INH SCH ×6 (03:08→23:03)
[2018-08-15] MEDS: CARDIZEM LA PO SCH (05:09)
--- NOTE | 2018-08-15 06:57 | Diag Imaging Result Doc PS360 ---
EXAM: CHEST-PORTABLE 08/15/2018 HISTORY: Dyspnea TECHNIQUE: AP portable at 0617 COMMENT: There is cardiomegaly. There is diffuse reticulonodular interstitial opacity particularly in the right perihilar region. The appearance is similar to the previous studies of 08/11/2018 and 08/14/2018. Compared to 03/30/2017 the lungs are not as well-expanded in the right perihilar opacity is worse but otherwise the interstitial pattern was similar previously. IMPRESSION: Interstitial fibrosis with possible superimposed bronchopneumonia on the right. Electronically signed by Yg Nunn 08/15/2018 6:54 AM
[2018-08-15 07:51] LABS: BASO# 0.01 X1000 (0.0-0.2); BASO% 0.1 % (0.0-0.8); EOS# 0.01 X1000 (0.0-0.7); EOS% 0.1 % (0.0-10.0); HEMATOCRIT 41.3 % (37.0-47.0); HEMOGLOBIN 12.8 g/dL (12.0-16.0); IMM GRAN# 0.07 X1000 (0.0-0.04); IMM GRAN% 0.4 % (0.0-0.5); LYMPH# 1.23 X1000 (1.2-3.4); LYMPH% 7.2 % (20.5-51.1); MCH 28.9 PG (27-31); MCV 93.2 FL (81-99); MONO# 1.58 X1000 (0.11-0.59); MONO% 9.3 % (1.7-9.3); MPV 11.3 FL (7.4-10.4); NEUT# 14.08 X1000 (1.4-6.5); NEUT% 82.9 % (42.2-75.2); PLT 189 X1000 (130-400); RBC 4.43 XMIL (4.2-5.4); RDW 15.2 % (11.5-14.5); WBC 16.98 X1000 (4.8-10.8)
[2018-08-15 08:39] LABS: AGAP 6; BUN 28 mg/dL (8-22); CALCIUM 9.6 mg/dL (8.8-10.2); CHLORIDE 105 mmol/L (98-107); COSMO 292; CREATININE 0.8 mg/dL (0.5-0.9); ESTIMATED GFR > 60; GLUCOSE 98 mg/dL (70-104); POTASSIUM 5.2 mmol/L (3.5-5.1); SODIUM 144 mmol/L (136-145); TCO2 33 mmol/L (25-35)
[2018-08-15] MEDS: MIRALAX PO SCH (10:30)
[2018-08-15] MEDS: SINEMET 25/100 PO SCH ×4 (10:30→21:38)
[2018-08-15] MEDS: PREDNISONE PO SCH (10:31)
[2018-08-15] MEDS: PROTONIX PO SCH ×2 (10:31→21:38)
[2018-08-15] MEDS: ASPIRIN PO SCH (10:31)
[2018-08-15] MEDS: LEXAPRO PO SCH (10:31)
[2018-08-15] MEDS: ROCEPHIN 1 GM in NS 50 ML IV SCH (17:36)
--- NOTE | 2018-08-15 21:13 | PROGRESS NOTE ---
DATE: 08/15/2018 SUBJECTIVE: The patient is sitting on the bed today. She had a modified barium swallow that showed a distended esophagus, but no obstruction of the flow, no aspiration during the exam. She does have some pulmonary venous congestion, pneumonia and fibrosis. Infectious Disease Department and Pulmonary Department are on board. She is still having some shortness of breath, but she is getting better. OBJECTIVE: Vital signs: Temperature 97.5 degrees, pulse 74, respiratory rate 18, blood pressure 164/78, oxygen saturation 98% on 2 L of nasal cannula.HEENT: Head normocephalic, no trauma. PERRLA. Neck supple. No JVD. No masses. Central trachea. Chest: Decreased breath sounds globally with no wheezing today, but crackles bilaterally with crepitus which are generalized. Abdomen is soft, nontender, nondistended. No hepatosplenomegaly. Extremities: No edema, no clubbing. No cyanosis. Neurologic: The patient is alert and oriented x3. No focal deficit, but generalized weakness. LABORATORY DATA: WBC 16.9, hemoglobin 12.8, hematocrit 41.3, platelets 189,000. Sodium 144, potassium 5.2, chloride 105, bicarbonate 33, BUN 28, creatinine 0.8, glucose 98, calcium 9.6. ASSESSMENT AND PLAN: 1. Acute hypoxemic respiratory failure, likely secondary to chronic obstructive pulmonary disease exacerbation, pneumonia, exacerbation of bronchiectasis and pulmonary fibrosis. She is on home oxygen. We will continue with same management. Pulmonary Department following this patient. I think she is getting better. 2. Acute community-acquired pneumonia. As above. 3. Chronic obstructive pulmonary disease exacerbation. Continue with p.o. steroids, and probably I will stop it soon since she is not wheezing. 4. Atrial fibrillation with rapid ventricular response, controlled. 5. Diastolic heart failure. This patient received a little bit of Lasix a few days ago. She still has some crackles, but she is feeling better. Her kidney function is at baseline. We will monitor. 6. Likely chronic kidney disease. We will monitor. 7. Parkinson disease. Continue home medication. 8. Chronic atrial fibrillation, rate controlled. TSH is normal. Continue with metoprolol as needed and home medications. 9. Dementia. Aware. 10. Leukocytosis, likely a combination of steroids and pneumonia with bronchiectasis, getting better. Continue to monitor. 11. Physical deconditioning and generalized weakness. Continue physical therapy. cc: Pedro Mccann MD
[2018-08-15] MEDS: ZITHROMAX 500 MG/NS 500 MG/250 ML IVPB IV SCH (21:37)
[2018-08-15] MEDS: MIRAPEX PO SCH (21:38)
[2018-08-15] MEDS: TYLENOL PO PRN (21:46)
[2018-08-16] MEDS: DUONEB (A & A) INH SCH ×6 (03:47→22:20)
[2018-08-16] MEDS: TYLENOL PO PRN (05:02)
[2018-08-16] MEDS: CARDIZEM LA PO SCH (05:03)
[2018-08-16 06:55] LABS: BASO# 0.01 X1000 (0.0-0.2); BASO% 0.1 % (0.0-0.8); EOS# 0.15 X1000 (0.0-0.7); EOS% 1.2 % (0.0-10.0); HEMATOCRIT 43.8 % (37.0-47.0); HEMOGLOBIN 13.4 g/dL (12.0-16.0); IMM GRAN# 0.08 X1000 (0.0-0.04); IMM GRAN% 0.7 % (0.0-0.5); LYMPH# 1.77 X1000 (1.2-3.4); LYMPH% 14.5 % (20.5-51.1); MCH 28.2 PG (27-31); MCHC 30.6 g/dL (33-37); MCV 92.2 FL (81-99); MONO# 1.37 X1000 (0.11-0.59); MONO% 11.2 % (1.7-9.3); MPV 11.2 FL (7.4-10.4); NEUT% 72.3 % (42.2-75.2); PLT 186 X1000 (130-400); RBC 4.75 XMIL (4.2-5.4); RDW 15.1 % (11.5-14.5); WBC 12.18 X1000 (4.8-10.8)
[2018-08-16 07:17] LABS: AGAP 6; BUN 23 mg/dL (8-22); CALCIUM 9.2 mg/dL (8.8-10.2); CHLORIDE 103 mmol/L (98-107); COSMO 286; CREATININE 0.8 mg/dL (0.5-0.9); ESTIMATED GFR > 60; GLUCOSE 82 mg/dL (70-104); POTASSIUM 4.9 mmol/L (3.5-5.1); SODIUM 142 mmol/L (136-145); TCO2 33 mmol/L (25-35)
--- NOTE | 2018-08-16 08:39 | PULMONOLOGY PROGRESS NOTE ---
DATE: 08/15/2018 SUBJECTIVE: The patient is awake, alert, and conversant. She reports her breathing has marginally improved. OBJECTIVE: Vital Signs: The patient has been afebrile for the last 24 hours. BP 119/73, heart rate 77, respiratory rate 19, oxygen saturation 100% on 2 L per nasal cannula. HEENT: Pupils are equal and reactive. Oropharynx is clear. Neck is supple. Chest reveals prolonged expiratory phase. Cardiac Examination: Distant heart sounds. Normal S1, normal S2. Abdomen: Soft. Extremities: Reveal trace edema. Laboratories: Chest x-ray reveals cardiomegaly with reticulonodular infiltrate with possible pneumonia on the right. White blood count 16.98, hemoglobin 12.8, platelet count 189,000. IMPRESSION: An 82-year-old with: 1. Chronic obstructive pulmonary disease. 2. Exacerbation of bronchiectasis. 3. Acute hypoxemic respiratory failure. 4. Dementia. 5. Leukocytosis. RECOMMENDATIONS: 1. Continue antibiotics for exacerbation of bronchial hygiene with possible pneumonia. 2. Continue bronchodilators. 3. Continue oxygen for hypoxemic respiratory failure. 4. Sputum cultures recommended if can be obtained. cc: Demar Vaughn MD
[2018-08-16] MEDS: MIRALAX PO SCH ×2 (10:01→10:07)
[2018-08-16] MEDS: PROTONIX PO SCH ×2 (10:01→21:32)
[2018-08-16] MEDS: SINEMET 25/100 PO SCH ×4 (10:01→21:32)
[2018-08-16] MEDS: ASPIRIN PO SCH (10:01)
[2018-08-16] MEDS: PREDNISONE PO SCH (10:02)
[2018-08-16] MEDS: LEXAPRO PO SCH (10:02)
--- NOTE | 2018-08-16 13:43 | PROGRESS NOTE ---
DATE: 08/16/2018 SUBJECTIVE: This patient is feeling tired at this moment because she just had physical therapy, but she is breathing better. She had a modified barium swallow that showed a distended esophagus but no obstruction of the flow. No aspiration during the exam. She does have pulmonary venous congestion, pneumonia, and fibrosis. Infectious disease department evaluated this patient and they are on board. She is still having some shortness of breath but I believe she is getting better. At this moment, she is requiring only 2 L of oxygen. I believe this patient can be discharged in the next 24 to 48 hours. I discussed with the family the possibility of sending this patient to a rehab center and they will discuss with the patient about it. OBJECTIVE: Vital Signs: Temperature 97.9 degrees, pulse 84, respiratory rate 18, blood pressure 146/80, oxygen saturation 100% on 2 L of nasal cannula. HEENT: Head normocephalic. No trauma. PERRLA. Neck: Supple. No JVD. No masses. Central trachea. Chest: Decreased breath sounds globally with no wheezing today. Some crackles bilaterally with crepitus which are generalized. Abdomen: Soft, nontender, nondistended. No hepatosplenomegaly. Extremities: No edema, no clubbing, no cyanosis. Neurological Examination: The patient is alert and oriented x3. No focal neurological deficits but generalized weakness. Laboratory: WBC 12.1, hemoglobin 13.4, hematocrit 43.0, platelets 186,000. Sodium 142, potassium 4.9, chloride 103, bicarbonate 33, BUN 23, creatinine 0.8, glucose 82, calcium 9.2. ASSESSMENT AND PLAN: 1. Acute hypoxemic respiratory failure secondary to chronic obstructive pulmonary disease exacerbation, pneumonia, exacerbation of bronchiectasis, and pulmonary fibrosis. She is on home oxygen. We will continue with the same management. She is on antibiotics. I believe she can be discharged in the next 24 to 48 hours. I discussed with the family about the possibility of sending this patient to a rehab center since she is really weak. 2. Community-acquired pneumonia, as above. 3. Chronic obstructive pulmonary disease exacerbation. Continue with oral steroids. It looks like she is on prednisone also at home, which I will continue. 4. Atrial fibrillation with rapid ventricular response, resolved, rate controlled. 5. Diastolic heart failure. This patient received a little bit of Lasix a few days ago. She is still having some crackles but she is feeling better. Kidney function is at baseline. We will continue to monitor. 6. Likely chronic kidney disease. We will monitor. 7. Parkinson's disease. Continue with home medication. 8. Chronic atrial fibrillation, rate controlled. TSH is normal. Continue with metoprolol as needed and home medication. 9. Dementia. Aware. 10. Leukocytosis, likely a combination of pneumonia, bronchiectasis, and steroid use. This is better. 11. Physical deconditioning and generalized weakness. I discussed the case with the patient and the family members at the bedside. We discussed about the possibility of sending this patient to a rehab center. It looks like they have home health at home. They will discuss the case and then they will let me know if they are willing if she is willing to go to a rehab center. cc: Pedro Mccann MD
[2018-08-16] MEDS: ROCEPHIN 1 GM in NS 50 ML IV SCH (17:40)
--- NOTE | 2018-08-16 17:49 | PULMONOLOGY PROGRESS NOTE ---
DATE: 08/16/2018 SUBJECTIVE: The patient is awake, alert, and conversant. She reports she feels better than yesterday. OBJECTIVE: Vital Signs: Blood pressure 110/55, heart rate 71, respiratory rate 16, oxygen saturation 100% on 2 L per nasal cannula. She has been afebrile for the last 24 hours. HEENT: Pupils are equal and reactive. Oropharynx appears clear. Neck: Supple. Chest: Reveals faint crackles in both lung bases with prolonged expiratory phase. Cardiac: S1, S2. Abdomen: Soft. Extremities: Without edema. LABORATORIES: No new microbiology data. White blood count 12.2, hemoglobin 13.4, platelet count 186,000. Sodium 142, potassium 4.9, chloride 103, bicarbonate 33, BUN 23, creatinine 0.8. IMPRESSION: An 82-year-old with: 1. Chronic obstructive pulmonary disease. 2. Exacerbation of bronchiectasis. 3. Acute hypoxemic respiratory failure. 4. Leukocytosis with continued decrease in white blood count. 5. Dementia. RECOMMENDATIONS: 1. Continue antibiotics for exacerbation of bronchiectasis with possible pneumonia. 2. Continue oxygen for hypoxemic respiratory failure. 3. Continue bronchodilators. cc: Demar Vaughn MD
[2018-08-16] MEDS: ZITHROMAX 500 MG/NS 500 MG/250 ML IVPB IV SCH (21:32)
[2018-08-16] MEDS: MIRAPEX PO SCH (21:32)
[2018-08-17] MEDS: TYLENOL PO PRN ×2 (00:32→06:05)
[2018-08-17] MEDS: DUONEB (A & A) INH SCH ×6 (03:40→23:10)
[2018-08-17] MEDS: CARDIZEM LA PO SCH (06:05)
[2018-08-17 07:14] LABS: BASO# 0.01 X1000 (0.0-0.2); BASO% 0.1 % (0.0-0.8); EOS# 0.23 X1000 (0.0-0.7); EOS% 1.8 % (0.0-10.0); HEMATOCRIT 44.2 % (37.0-47.0); HEMOGLOBIN 13.7 g/dL (12.0-16.0); IMM GRAN% 0.8 % (0.0-0.5); LYMPH# 2.11 X1000 (1.2-3.4); LYMPH% 16.2 % (20.5-51.1); MCH 28.5 PG (27-31); MCV 92.1 FL (81-99); MONO% 10.7 % (1.7-9.3); NEUT# 9.18 X1000 (1.4-6.5); NEUT% 70.4 % (42.2-75.2); PLT 200 X1000 (130-400); RDW 15.2 % (11.5-14.5); WBC 13.03 X1000 (4.8-10.8)
[2018-08-17 07:51] LABS: CALCIUM 9.6 mg/dL (8.8-10.2); POTASSIUM 4.5 mmol/L (3.5-5.1)
[2018-08-17] MEDS: LEXAPRO PO SCH (09:22)
[2018-08-17] MEDS: PREDNISONE PO SCH (09:22)
[2018-08-17] MEDS: MIRALAX PO SCH (09:22)
[2018-08-17] MEDS: ASPIRIN PO SCH (09:22)
[2018-08-17] MEDS: SINEMET 25/100 PO SCH ×4 (09:22→20:10)
[2018-08-17] MEDS: PROTONIX PO SCH ×2 (09:22→20:10)
[2018-08-17] MEDS ORDERED: DULCOLAX PR ONE (11:13)
[2018-08-17] MEDS ORDERED: MILK OF MAGNESIA PO ONE (11:14)
[2018-08-17] MEDS ORDERED: CALMOSEPTINE OINTMENT TOP PRN (13:21)
--- NOTE | 2018-08-17 13:39 | PROGRESS NOTE ---
DATE: 08/17/2018 SUBJECTIVE: No acute events overnight. Today, she seems to be more sleepy. She is still complaining of shortness of breath. She is constipated so I will order a suppository and I will continue with MiraLAX twice a day which she has been refusing. I had a conversation with the daughter, who is at the bedside. Since this patient is weak, they have requested the possibility of sending this patient to a rehab center. I will place the order for the social work program coordinator to evaluate that possibility. OBJECTIVE: Vital Signs: Temperature 98 degrees, pulse 87, respiratory rate 16, blood pressure 113/64, oxygen saturation 100% on 2.5 L of nasal cannula. HEENT: Head normocephalic. No trauma. PERRLA. Neck: Supple. No JVD. No masses. Central trachea. Chest: Decreased breath sounds globally with no wheezing. Crackles bilaterally and crepitus which are generalized. Abdomen: Soft, nontender, nondistended. No hepatosplenomegaly. Extremities: No edema, no clubbing, no cyanosis. Neurological Examination: The patient is alert and oriented x3. No focal neurological deficit but generalized weakness. Laboratory: WBC 13, hemoglobin 13.7, hematocrit 44.2, platelets 200,000. Sodium 142, potassium 4.5, chloride 102, bicarbonate 33, BUN 21, creatinine 1, glucose 77, calcium 9.6. ASSESSMENT AND PLAN: 1. Acute hypoxemic respiratory failure secondary to chronic obstructive pulmonary disease exacerbation, pneumonia, exacerbation of bronchiectasis, and pulmonary fibrosis. She is on home oxygen. We will continue with the same management. She is on antibiotics. I believe she can be discharged in the next 24 to 48 hours if pulmonary department agrees with that. Infectious disease department also is following this patient. We will monitor. 2. Community-acquired pneumonia, as above. 3. Chronic obstructive pulmonary disease exacerbation. Continue with oral steroids. She has been on prednisone at home for a very long time, which we will continue upon discharge. 4. Atrial fibrillation with rapid ventricular response, resolved, rate controlled. 5. Diastolic heart failure. We will monitor. Not in exacerbation at this moment. 6. Likely chronic kidney disease. We will monitor. 7. Parkinson's disease. Continue with home medication. 8. Chronic atrial fibrillation, rate controlled. TSH is normal. Continue with metoprolol as needed and home medication. 9. Dementia. Aware. 10. Leukocytosis, likely a combination of pneumonia, bronchiectasis, and steroid use. This is chronic. 11. Physical deconditioning and generalized weakness. I have requested physical therapy to treat this patient twice a day. I also asked the social work program coordinator to evaluate the possibility of sending this patient to a rehab center. cc: Pedro Mccann MD
[2018-08-17] MEDS: ROCEPHIN 1 GM in NS 50 ML IV SCH (17:44)
--- NOTE | 2018-08-17 18:23 | INFECTIOUS DISEASE PROGRESS NO ---
DATE: 08/17/2018 PRESENT ILLNESS: The patient has a right-sided pneumonia. MEDICATIONS: This is the 6th day of treatment with a combination of Rocephin and azithromycin. PHYSICAL EXAMINATION: Vital Signs: Temperature is 98, pulse 87, respirations 16, blood pressure 131/64. General: This is a chronically ill-appearing, elderly female. She is in no acute distress. HEENT: She can see near objects. She does have decreased hearing. She does not have any white coating on her tongue. Neck: She does not have any pain when she moves her neck. Lungs: Clear to auscultation. Thorax: The patient has a dorsal kyphosis. Cardiovascular: The patient's heart rate is irregular. Abdomen: Soft and not tender. Neurologic: The patient is awake. She can move her extremities. There is no tremor. LAB AND X-RAY: Chest x-ray shows right-sided pneumonia. The patient's CBC for today shows a white count of 13,030, hemoglobin 13.7, and platelet count 200,000. Patient's creatinine is 1.0. GFR is 53. ASSESSMENT AND PLAN: Patient has a right-sided pneumonia. My plan would be to continue Rocephin and azithromycin. She does have a leukocytosis, but she is on steroids which could be causing the leukocytosis. COMORBIDITIES: The patient is elderly and she has COPD as well as Parkinson disease. cc: Kennedy Putnam MD
[2018-08-17] MEDS: ZITHROMAX PO SCH (20:10)
[2018-08-17] MEDS: MIRAPEX PO SCH (20:11)
[2018-08-18] MEDS: DUONEB (A & A) INH SCH ×6 (03:47→22:25)
[2018-08-18] MEDS: CARDIZEM LA PO SCH (05:11)
--- NOTE | 2018-08-18 06:52 | Diag Imaging Result Doc PS360 ---
CHEST-PORTABLE - 08/18/2018 INDICATION: dyspnea COMPARISON: 08/15/2018 FINDINGS: The patient is very rotated to the right. Stable cardiomegaly. Stable interstitial opacities in the peripheral right lung suggesting fibrosis. No definite infiltrates or edema. No pneumothorax or large pleural effusion. IMPRESSION: Cardiomegaly. Stable mild pulmonary fibrosis. Electronically signed by Abraham Villalobos 08/18/2018 6:50 AM
[2018-08-18 07:23] LABS: BASO# 0.01 X1000 (0.0-0.2); BASO% 0.1 % (0.0-0.8); EOS# 0.32 X1000 (0.0-0.7); EOS% 2.4 % (0.0-10.0); HEMATOCRIT 44.6 % (37.0-47.0); IMM GRAN# 0.11 X1000 (0.0-0.04); IMM GRAN% 0.8 % (0.0-0.5); LYMPH# 2.43 X1000 (1.2-3.4); LYMPH% 18.5 % (20.5-51.1); MCH 28.6 PG (27-31); MCHC 31.4 g/dL (33-37); MONO# 1.35 X1000 (0.11-0.59); MONO% 10.3 % (1.7-9.3); MPV 11.2 FL (7.4-10.4); NEUT# 8.88 X1000 (1.4-6.5); NEUT% 67.9 % (42.2-75.2); PLT 204 X1000 (130-400)
[2018-08-18 07:49] LABS: CALCIUM 9.6 mg/dL (8.8-10.2); CREATININE 0.9 mg/dL (0.5-0.9); POTASSIUM 4.8 mmol/L (3.5-5.1)
[2018-08-18] MEDS: PREDNISONE PO SCH (09:41)
[2018-08-18] MEDS: ASPIRIN PO SCH (09:41)
[2018-08-18] MEDS: LEXAPRO PO SCH (09:41)
[2018-08-18] MEDS: PROTONIX PO SCH ×2 (09:41→22:46)
[2018-08-18] MEDS: SINEMET 25/100 PO SCH ×4 (09:41→22:45)
[2018-08-18] MEDS: ZITHROMAX PO SCH (09:41)
[2018-08-18] MEDS: MIRALAX PO SCH (09:41)
[2018-08-18] MEDS: TYLENOL PO PRN (11:29)
--- NOTE | 2018-08-18 16:16 | PROGRESS NOTE ---
DATE: 08/18/2018 SUBJECTIVE: The patient, according to the nursing staff, has been coughing a lot of watery sputum. Family who is at bedside confirmed that she used to have those episodes. No other complaints noted as per nursing staff overnight. OBJECTIVE: Vital Signs: Temperature 97.7 degrees, heart rate 86, respiratory rate 16, blood pressure 134/63, O2 saturation 100% on 2.5 L of nasal cannula. General examination: This is a chronically ill-appearing, 82-year-old female lying in bed, in no acute distress. HEENT: Head is normocephalic and atraumatic. Neck: No JVD noted. No carotid bruits. No lymphadenopathy. No thyromegaly. Cardiovascular: S1, S2 heard. No murmurs, gallops, or rubs. Regular rate and rhythm. Respiratory: There are decreased breath sounds globally. Some rhonchi in both pulmonary bases as well as crackles. Patient is not using any accessory muscles or having work of breathing. Abdomen: Soft. Nontender to palpation. Bowel sounds present. No organomegaly. Extremities: No clubbing, cyanosis, or edema. Peripheral pulses present in both legs. Neurological: The patient is a little bit sleepy but responds to verbal stimuli. No focal neurological deficit noted but there is generalized weakness. LABORATORY DATA: White cell count 13.1, hemoglobin 14.0, hematocrit 44.6, platelets 204,000. Normal BMP. ASSESSMENT AND PLAN: 1. Acute hypoxemic respiratory failure secondary to chronic obstructive pulmonary disease exacerbation, pneumonia, exacerbation of bronchiectasis and pulmonary fibrosis. Patient is on home oxygen. We will continue with the same management. Patient is on Rocephin and azithromycin for that condition. Infectious Disease is also following this patient. We will follow recommendations. 2. Chronic obstructive pulmonary disease exacerbation. We will continue with oral steroids. Actually white cell count is elevated because of that. 3. Atrial fibrillation with rapid ventricular response, resolved. 4. Diastolic heart failure. Patient is not in exacerbation. 5. Chronic kidney disease. Actually her renal function is completely back to normal. 6. Parkinson disease. We will continue home medication. 7. Dementia. Aware. 8. Physical deconditioning. The patient is doing fine. Family agreed to send this patient to a rehab facility. We are awaiting a bed for her. I think the patient can be discharged in the next 24 to 48 hours. cc: Juan Carlos Arreaga MD
--- NOTE | 2018-08-18 16:22 | Diag Imaging Result Doc PS360 ---
EXAM: CT THORAX W/O CONTRAST 08/18/2018 HISTORY: pneumonia TECHNIQUE: This exam was performed using automated exposure control, adjustment of mA or kV according to patient size, and/or use of iterative reconstruction technique. COMMENT: The current examination is compared with 10/04/2010. There is extensive bronchiectasis in both upper lobes. There are apparently worsened cystic changes than on the previous study. There is fluid in some of the dilated bronchi. There is much worse bronchiectasis in the right anterior upper lobe than on the previous study. The right middle lobe remains atelectatic with marked cystic bronchiectasis. There is worsened bronchiectasis in the anterior left lower lobe. The esophagus is markedly distended containing pertains solid material to the gastroesophageal junction. The stomach is not distended. Otherwise the visualized portion of the abdomen has not changed significantly. There is a large cyst arising from the lower pole of the left kidney which was not included on the previous examination. This exceeds 8 cm in diameter. There is spondylosis in the thoracic spine. There is no evidence of significant adenopathy. There are coronary calcifications and calcifications in the mitral valve annulus. IMPRESSION: 1. Worsened bronchiectasis. May also be an exacerbation of bronchitis. 2. Esophagus distended with retained solid contents. The possibility of aspiration cannot be excluded. Electronically signed by Yg Nunn 08/18/2018 4:20 PM
--- NOTE | 2018-08-18 19:38 | INFECTIOUS DISEASE PROGRESS NO ---
DATE: 08/18/2018 PRESENT ILLNESS: I have been treating the patient for a right-sided pneumonia. MEDICATIONS: This is the 7th day of treatment with a combination of Rocephin and azithromycin. PHYSICAL EXAMINATION: Vital Signs: Temperature is 97.1 degrees, pulse 75, respirations 17, blood pressure 168/77. General: This is a chronically ill-appearing, elderly female. She does not appear to be in acute distress today. She is more lethargic than usual, and also she has not been eating much today, and she also seemed to complain of dysphagia. Head, Eyes, Ears, Nose, Throat: No drainage noted from the nose or ears. Neck: There was no meningismus. Lungs: Clear to auscultation. Cardiovascular: Heart rate is irregular. Thorax: Patient has a dorsal kyphosis. Abdomen: Soft and not tender. Neurologic: The patient is very lethargic. She did not follow request to move her extremities. There was no tremor. LAB AND X-RAY: Chest x-ray showed pulmonary fibrosis, but no infiltrates. Creatinine is 0.9. GFR is 60. Blood cultures are negative. Sputum is growing a gram-negative anrdew. CBC shows a white count of 13,100, hemoglobin 14, and platelet count 204,000. ASSESSMENT AND PLAN: The patient initially had pneumonia. On chest x-ray now, no infiltrate is seen, only pulmonary fibrosis. As far as her lethargy and dysphagia, I am uncertain as to exactly what is causing that. Pertaining to the patient's leukocytosis, she is on steroids which I think are causing the patient to have leukocytosis. My plan now is to stop Rocephin and azithromycin, and obtain a CT scan of the chest without any intravenous contrast. COMORBIDITIES: The patient is elderly and she has COPD and Parkinson disease. I am waiting also for the identification of the gram-negative andrew in the patient's sputum. cc: Kennedy Putnam MD
[2018-08-18] MEDS: MIRAPEX PO SCH (22:45)
[2018-08-19] MEDS: DUONEB (A & A) INH SCH ×6 (03:47→22:36)
[2018-08-19] MEDS: CARDIZEM LA PO SCH (05:39)
[2018-08-19 07:06] LABS: BASO# 0.01 X1000 (0.0-0.2); BASO% 0.1 % (0.0-0.8); EOS# 0.04 X1000 (0.0-0.7); EOS% 0.2 % (0.0-10.0); HEMATOCRIT 47.7 % (37.0-47.0); HEMOGLOBIN 14.8 g/dL (12.0-16.0); IMM GRAN% 0.5 % (0.0-0.5); LYMPH# 1.51 X1000 (1.2-3.4); LYMPH% 7.6 % (20.5-51.1); MCH 28.4 PG (27-31); MCV 91.6 FL (81-99); MONO# 1.22 X1000 (0.11-0.59); MONO% 6.2 % (1.7-9.3); MPV 11.8 FL (7.4-10.4); NEUT# 16.91 X1000 (1.4-6.5); NEUT% 85.4 % (42.2-75.2); PLT 200 X1000 (130-400); RBC 5.21 XMIL (4.2-5.4); WBC 19.79 X1000 (4.8-10.8)
[2018-08-19 07:29] LABS: CALCIUM 10.2 mg/dL (8.8-10.2); CREATININE 1.1 mg/dL (0.5-0.9); POTASSIUM 5.2 mmol/L (3.5-5.1)
--- NOTE | 2018-08-19 10:31 | EKG Report ---
Test Performed on : 08/19/2018 10:24:33 AM Test Reason : chestpain Blood Pressure : / mmHG Vent. Rate : 102 BPM Atrial Rate : 394 BPM P-R Int : 000 ms QRS Dur : 072 ms QT Int : 336 ms P-R-T Axes : 000 075 051 degrees QTc Int : 437 ms Atrial fibrillation. with rapid ventricular response. Septal infarct , age undetermined Abnormal ECG When compared with ECG of 12-AUG-2018 05:07, Septal infarct is now present T wave inversion no longer evident in Inferior leads Nonspecific T wave abnormality no longer evident in Anterolateral leads Confirmed by Ronny ALVES, Akhil Kerns ([id number]) on 08/20/2018 11:39:01 AM
--- NOTE | 2018-08-19 10:56 | Diag Imaging Result Doc PS360 ---
EXAM: CHEST-2 VIEWS HISTORY: chest pain TECHNIQUE: Chest two views COMPARISON: 08/18/2018 FINDINGS: The patient is rotated to the right. The lungs are hyperexpanded. The heart is enlarged. Mild increased interstitial markings similar to the prior exam. The esophagus is dilated and there is debris in the distal esophagus. This was described on the recent CT. IMPRESSION: No interval improvement. Electronically signed by Sanjay Casey 08/19/2018 10:54 AM
[2018-08-19] MEDS: TYLENOL PO PRN (11:11)
[2018-08-19] MEDS: LEXAPRO PO SCH (11:13)
[2018-08-19] MEDS: ASPIRIN PO SCH (11:13)
[2018-08-19] MEDS: MIRALAX PO SCH (11:14)
[2018-08-19] MEDS: SINEMET 25/100 PO SCH ×4 (11:14→17:47)
[2018-08-19] MEDS: PROTONIX PO SCH (11:15)
[2018-08-19] MEDS ORDERED: MISC. PHARMACY COMMUNICATION SCH (11:15)
[2018-08-19] MEDS: PREDNISONE PO SCH (11:15)
--- NOTE | 2018-08-19 14:51 | PROGRESS NOTE ---
DATE: 08/19/2018 SUBJECTIVE: The patient is a little bit more sleepy than yesterday. According to the nurse, the patient has been spitting up a lot of lung secretions. Sometimes, she has some difficulty and seems like she chokes on those. OBJECTIVE: Vital Signs: Temperature 97.6 degrees, heart rate 67, respiratory rate 20, blood pressure 197/91, O2 saturation 96% 2 L nasal cannula. General: This is an 82-year-old female, lying in bed in no acute distress. HEENT: Head is normocephalic, atraumatic. Neck: No JVD noted. No carotid bruit. Cardiovascular: S1, S2 heard. No murmurs, gallops, or rubs. Regular rate and rhythm. Respiratory: Decreased breath sounds globally, with rhonchi in both pulmonary bases, as well as crackles. The patient is not using any accessory muscles or having work of breathing. Abdomen: Soft, nontender to palpation. Bowel sounds present. No organomegaly. Extremities: No clubbing, cyanosis, or edema. Peripheral pulses present in both legs. Neurological: The patient is a little bit sleepy, but responds to verbal stimuli. LABORATORY DATA: Reviewed. ASSESSMENT AND PLAN: 1. Acute hypoxemic respiratory failure secondary to chronic obstructive pulmonary disease exacerbation and pneumonia exacerbation with bronchiectasis and pulmonary fibrosis. The patient unfortunately is not improving. She is having more cough or more lung secretions. At this time, we have found Pseudomonas in her lung secretions, so according to Infectious Disease doctor, we are going to start this patient on colistin intravenously and tobramycin inhaled. The family was made aware of the adverse reaction of those medication. Another option for this patient is home with hospice. Family is going to talk, and will have an answer for us tomorrow. 2. Chronic obstructive pulmonary disease. Will continue with oral steroid. 3. Atrial fibrillation with rapid ventricular response, resolved. 4. Diastolic heart failure. The patient is not in any exacerbation. 5. Chronic kidney disease. Renal function is back to normal. 6. Parkinson's disease. Will continue with home medications. 7. Dementia. Aware. 8. Physical deconditioning. Initially, we were planning to send her to rehab facility, but I think at this point, the patient is very debilitated, so hospice is an option for her. Will see what the patient's family decides. cc: Juan Carlos Arreaga MD
[2018-08-19] MEDS: NS IV SCH (15:45)
[2018-08-19] MEDS: COLISTIN IV SCH (15:45)
[2018-08-19] MEDS: TOBRAMYCIN INH SCH ×2 (16:34→19:46)
--- NOTE | 2018-08-19 19:40 | INFECTIOUS DISEASE PROGRESS NO ---
DATE: 08/19/2018 PRESENT ILLNESS: The patient has a Pseudomonas pulmonary infection in a patient who has on CT scan worsened bilateral bronchiectasis and distended esophagus with retained solid contents in it. MEDICATIONS: The patient has been on Rocephin and azithromycin. PHYSICAL EXAMINATION: Vital Signs: Temperature is 97.6 degrees, pulse 67, respirations 20, blood pressure 187/91. General: This is a lethargic, chronically ill-appearing elderly female. She does not appear to be in any acute distress today, but she is quite lethargic. Head/eyes/ears/nose/throat: There is no drainage from the nose or ears. I could not see well into the patient's mouth. Neck: No meningismus. Lungs: There were bilateral rhonchi. Cardiovascular: Heart rate is irregular. Abdomen: Soft and nontender. Neurologic: The patient is very lethargic. She did not follow requests to move her extremities. The patient does not have a tremor. LAB AND X-RAY: CT scan of the thorax shows a worsened bilateral bronchiectasis and a distended esophagus with retained solid contents. CBC shows a white count of 19,790, hemoglobin 14.8 and platelet count 200,000. Creatinine is 1.1. GFR is 47. Sputum is growing Pseudomonas. Unfortunately, the organism in vitro is resistant to cefepime and ceftazidime. It is intermediate to levofloxacin. It is sensitive to amikacin and tobramycin and also is sensitive to Zosyn. ASSESSMENT AND PLAN: The patient has a Pseudomonas pulmonary infection, which I think is responsible for her high rise in the white blood cell count and also responsible for the patient's lethargy and possibly also causing the patient's esophagus to stop working as well as it did and become distended and having retained solid contents in it. The patient also has a big complication and is very resistant to antibiotics. For penicillin, cefaclor, and Levaquin, it says that the patient's adverse reaction was hives. Also, therefore I am going to treat the patient with intravenous colistin. I am not going to add an aminoglycoside that the organism is susceptible to because I think the combination of colistin and an aminoglycoside would very quickly put the patient in renal failure. Instead, I am going to give the patient tobramycin by inhalation along with IV colistin. COMORBIDITIES: The patient has COPD and especially worsening bronchiectasis. She also has Parkinson disease, and she has multiple drug allergies. I had a talk with the patient's daughter who has power of research attorney over the patient. I told her that Pseudomonas and especially this one with all of his resistance is very difficult to treat and the medications that we do use to treat can have a lot of side effects but especially renal toxicity. Also, I discussed with her how her esophagus apparently has quit working and now is very distended and has retained solid contents in it. I suggested to the patient's daughter that she needs to make a decision, does she want us to try treating her mother and just do hospice care or try to treat her with antibiotics for this infection. The daughter said that she will talk with the rest of the family and let me know their decision. cc: Kennedy Putnam MD
[2018-08-19] MEDS: OFIRMEV 1000 MG/ISOTONIC SOLN 1,000 MG/100 ML BOTTLE IV PRN (22:10)
[2018-08-20] MEDS: DUONEB (A & A) INH SCH ×6 (03:58→23:26)
[2018-08-20] MEDS: NS IV SCH (04:29)
[2018-08-20] MEDS: COLISTIN IV SCH (04:29)
[2018-08-20] MEDS: MIRAPEX PO SCH (05:12)
[2018-08-20] MEDS: SINEMET 25/100 PO SCH ×4 (05:12→19:14)
[2018-08-20] MEDS: PROTONIX PO SCH ×2 (05:12→10:17)
[2018-08-20] MEDS: CARDIZEM LA PO SCH (06:07)
[2018-08-20] MEDS: TOBRAMYCIN INH SCH (07:48)
[2018-08-20 08:51] LABS: BASO# 0.02 X1000 (0.0-0.2); BASO% 0.1 % (0.0-0.8); EOS# 0.45 X1000 (0.0-0.7); HEMATOCRIT 45.2 % (37.0-47.0); HEMOGLOBIN 14.1 g/dL (12.0-16.0); IMM GRAN% 0.7 % (0.0-0.5); LYMPH# 2.83 X1000 (1.2-3.4); LYMPH% 18.8 % (20.5-51.1); MCH 28.5 PG (27-31); MCHC 31.2 g/dL (33-37); MCV 91.5 FL (81-99); MONO# 1.46 X1000 (0.11-0.59); MONO% 9.7 % (1.7-9.3); MPV 11.3 FL (7.4-10.4); NEUT# 10.23 X1000 (1.4-6.5); NEUT% 67.7 % (42.2-75.2); PLT 200 X1000 (130-400); RBC 4.94 XMIL (4.2-5.4); RDW 15.2 % (11.5-14.5); WBC 15.09 X1000 (4.8-10.8)
[2018-08-20 09:32] LABS: CALCIUM 9.9 mg/dL (8.8-10.2); POTASSIUM 4.1 mmol/L (3.5-5.1)
[2018-08-20] MEDS: OFIRMEV 1000 MG/ISOTONIC SOLN 1,000 MG/100 ML BOTTLE IV PRN ×2 (10:03→18:30)
[2018-08-20] MEDS: MIRALAX PO SCH (10:16)
[2018-08-20] MEDS: LEXAPRO PO SCH (10:16)
[2018-08-20] MEDS: ASPIRIN PO SCH (10:16)
[2018-08-20] MEDS: PREDNISONE PO SCH (10:17)
--- NOTE | 2018-08-20 11:06 | PROGRESS NOTE ---
DATE: 08/20/2018 SUBJECTIVE: Patient continues to be sleepy, but according to nursing staff continues to spit up a lot of lung secretions. OBJECTIVE: Vital Signs: Temperature 97.4 degrees, heart rate 78, respiratory rate 18, blood pressure 132/52, and O2 saturation 98% 2 L nasal cannula. General: This is a chronically ill- appearing 82-year-old female lying in bed in no acute distress. Cardiovascular: S1, S2 heard. No murmurs, gallops, or rubs. Regular rate and rhythm. Respiratory: Coarse breath sounds noted in both pulmonary bases as well as crackles. Patient is not using any accessory muscles or having work of breathing. Abdomen: Soft. Nontender to palpation. Bowel sounds present. No organomegaly. Extremities: No clubbing, cyanosis, or edema. Peripheral pulses present in both legs. Neurological: Patient continues to be a little bit sleepy but responds to verbal stimuli. ASSESSMENT AND PLAN: 1. Acute hypoxemic respiratory failure secondary to COPD exacerbation. 2. Pseudomona pneumonia. 3. Atrial fibrillation with rapid ventricular response. 4. Diastolic heart failure. 5. Chronic kidney disease stage 3. 6. Parkinson's disease. 7. Dementia. 8. Physical deconditioning. PLAN: At this point, patient has decided to go with hospice. Dr. Putnam from Infectious Disease has signed off. At this point, we are waiting for addiction social worker to coordinate with hospice company to transfer this patient home whenever everything is arranged for her. cc: Juan Carlos Arreaga MD MTDD
--- NOTE | 2018-08-20 13:09 | INFECTIOUS DISEASE PROGRESS NO ---
DATE: 08/20/2018 The patient's family has decided to go with hospice care. I discussed with the patient's family that I was going to stop her antibiotics with which they agreed and I have put in a consult for hospice care. I am signing off the patient's case. I am available to see her on a p.r.n. basis. cc: Kennedy Putnam MD
[2018-08-20] MEDS ORDERED: LANOXIN IV ONE (19:48)
[2018-08-20] MEDS: LOPRESSOR IV PRN (19:58)
[2018-08-21] MEDS: DUONEB (A & A) INH SCH ×4 (03:25→15:40)
[2018-08-21] MEDS: MIRAPEX PO SCH (05:02)
[2018-08-21] MEDS: SINEMET 25/100 PO SCH ×3 (05:03→13:52)
[2018-08-21] MEDS: PROTONIX PO SCH ×2 (05:03→10:44)
[2018-08-21] MEDS: LOPRESSOR IV PRN ×2 (05:48→13:50)
[2018-08-21] MEDS: CARDIZEM LA PO SCH (10:43)
[2018-08-21] MEDS: MIRALAX PO SCH (10:44)
[2018-08-21] MEDS: ASPIRIN PO SCH (10:44)
[2018-08-21] MEDS: LEXAPRO PO SCH (10:44)
[2018-08-21] MEDS: PREDNISONE PO SCH (10:44)
[2018-08-21 11:40] VITALS: BP 140/84
--- NOTE | 2018-08-22 10:16 | DISCHARGE SUMMARY ---
ADMISSION DATE: 08/11/2018 DISCHARGE DATE: 08/21/2018 ADMISSION DIAGNOSES: 1. Acute hypoxemic respiratory failure. 2. Community-acquired pneumonia. 3. Diastolic heart failure, not in volume overload. 4. Parkinson's disease. 5. Chronic atrial fibrillation, rate controlled. DISCHARGE DIAGNOSES: 1. Acute hypoxemic respiratory failure secondary to chronic obstructive pulmonary disease exacerbation. 2. Pseudomonas pneumonia. 3. Atrial fibrillation with rapid ventricular response. 4. Diastolic heart failure. 5. Chronic kidney disease stage 3. 6. Parkinson's disease. 7. Dementia. 8. Physical deconditioning. CONSULTATIONS: Dr. Putnam, Dr. Vaughn. HOSPITAL COURSE: Ms. Michelle Cowart is an 82-year-old female who presented with complaints of shortness of breath and hypoxia. Daughter, who is at the bedside, today checked her pulse ox and it was in the mid 80s to low 90s so brought her in. Apparently she had been coughing up some yellow phlegm and they called the PCP who said to come to the ER. The patient herself was a poor historian so information was obtained through the daughter. She felt better after breathing treatments. Chest x-ray showed pulmonary edema versus pneumonia superimposed on pulmonary fibrosis. Her EKG showed atrial fibrillation but the rate was controlled at 82. She did have an elevated white count of 13,000. She was started on some oxygen. Started on azithromycin and Rocephin, IV steroids. Cultures were obtained. The sputum came back with pseudomonas aeruginosa so Dr. Putnam was consulted. Pulmonology was consulted. She had a modified barium swallow while she was there. It showed no obstruction of flow, no aspiration but apparently she was even witnessed choking a little bit while eating the day before and pneumonia came back showing pseudomonas aeruginosa. On the barium swallow, it did actually show a distended esophagus. Still required oxygen. She had physical deconditioning while she was here. She continued on Rocephin and erythromycin. She eventually towards the end of the first day decided to go to hospice care. Dr. Putnam signed off case and was available p.r.n. DISCHARGE VITAL SIGNS: Temperature 98.4 degrees, heart rate 63, respiratory rate 16, blood pressure 144/68, O2 saturation 98% on 2 liters nasal cannula. DISCHARGE LABORATORY DATA: White blood cells 15,000, hemoglobin 14, hematocrit 45, platelet count 200,000. Sodium 138, potassium 4.1, BUN 27, creatinine 1.0, glucose 86. PERTINENT IMAGING: Chest x-ray on admission, pulmonary edema and/or pneumonia, cardiomegaly. Chest x-ray on the which was the last one, apparently there is debris in the distal esophagus, on the last one it was better. Chest CT on the , worsening bronchiectasis, may also be an exacerbation of bronchitis. Esophagus is distended with a retained solid content. Possibility of aspiration could not be excluded. EKG on admission, atrial fibrillation rate 92. Next day, rate was 139, atrial fibrillation and on the , atrial fibrillation was 102. On the , had a speech modified barium swallow that showed distended esophagus but no obstruction to the flow. DISCHARGE MEDICATIONS: 1. Mirapex 0.5 mg p.o. nightly. 2. Lexapro 10 mg p.o. daily. 3. Nitrofurantoin 50 mg p.o. daily. 4. Prednisone 10 mg p.o. daily. 5. Sinemet 1 tablet p.o. 4 times a day. 6. Diltiazem 180 mg p.o. daily. 7. Albuterol 2 puffs inhaled every 6 hours p.r.n. DISCHARGE ACTIVITY: As tolerated. DISCHARGE DIET: Full liquid diet with Ensure. DISCHARGE INSTRUCTIONS: She will be under the care of hospice and will follow their direction. DISCHARGE PHYSICIAN FOLLOWUP: Dr. Smith and Dr. Benz. DISCHARGE DISPOSITION: Home with hospice. Dictated by ROB Quinn for Juan Carlos Arreaga MD Addendum: Patient seen and examined by myself. Agree with ROB. It reflects my assessment and plan. Patient is being discharged in stable condition to home with hospice who will follow this patient. cc: ROB Quinn MD [facility]
== END 2018-08-21 16:44 | disposition hospice, home (50) | DRG 177 ==
LOC: SUPCPDRO → ED 15:12 → 3N 21:25 → SUATTDRO 21:25
PROVIDERS: ATTEND Internal Medicine
CPT/HCPCS: 71010; 71020; 71045; 71046; 71250; 74230; 80048; 80076; 81001; 82550; 82805; 83605; 83735; 83880; 84443; 84484; 85025; 85379; 87040; 87070; 87077; 87186; 87205; 92611; 93005; 93010; 94640; 94760; 94761; 96365; 96367; 96375; 97110; 97162; 97167; 97530; 97535; 99285; A9270; J0131; J0456; J0696; J0770; J1160; J1940; J2405; J2920; J2930; J7506; J7512